=== PATIENT | male | born 1975 | race African-American/Black ===

== ENCOUNTER 2017-06-04 22:54 | Inpatient (IN) | payer MEDICAID ==
[~2017-06-04] VITALS: Ht 182.9 cm; Wt 86.2 kg
[2017-06-05] MEDS ORDERED: SODIUM CHLORIDE 0.9% 1,000 ML IV ONE (01:36)
[2017-06-05] MEDS ORDERED: ONDANSETRON HCL 4MG/2ML VIAL IV STA (01:36)
[2017-06-05 02:07] LABS: CLARITY URINE CLEAR (CLEAR); COLOR URINE YELLOW (YELLOW); KETONES URINE NEGATIVE (NEGATIVE); LEUKOCYTE ESTERASE URINE TRACE (NEGATIVE); NITRITE URINE NEGATIVE (NEGATIVE); OCCULT BLOOD URINE 2+ (NEGATIVE); PH URINE 5.5 (4.5-8.0); PROTEIN URINE 3+ (NEGATIVE); SPECIFIC GRAVITY URINE 1.016 (1.005-1.030); UROBILINOGEN URINE 0.2 E.U./dL (0.2-1.0)
[2017-06-05 02:20] LABS: *AMPHETAMINES SCREEN URINE PRESUMTIVE POSITIVE (NEGATIVE); *BARBITURATES SCREEN URINE NEGATIVE (NEGATIVE); *BENZODIAZEPINES SCREEN URINE NEGATIVE (NEGATIVE); *COCAINE SCREEN URINE NEGATIVE (NEGATIVE); CANNABINOID URINE SCREEN NEGATIVE (NEGATIVE); METHADONE URINE SCREEN NEGATIVE (NEGATIVE); OPIATES URINE SCREEN NEGATIVE (NEGATIVE); PHENCYCLIDINE URINE SCREEN NEGATIVE (NEGATIVE)
[2017-06-05 02:25] LABS: BASOPHILS % 0.5 % (0.0-2.0); EOSINOPHILS % 0.9 % (0.0-5.0); HEMATOCRIT. 31.5 % (42.0-52.0); HEMOGLOBIN. 10.4 g/dL (14.0-18.0); LYMPHOCYTES % 11.4 % (20.0-50.0); MEAN CORPUSCULAR HEMOGLOBIN 26.7 pg (28.0-32.0); MEAN CORPUSCULAR VOLUME 81.2 fL (80.0-94.0); MEAN PLATELET VOLUME 9.1 fl (7.4-10.4); MONOCYTES % 6.8 % (2.0-8.0); NEUTROPHILS % 80.4 % (40.0-76.0); PLATELET 333 x1000/uL (130-400); RED BLOOD CELL COUNT 3.88 mill/uL (4.7-6.1); RED CELL DISTRIBUTION WIDTH 14.6 % (11.6-14.6)
[2017-06-05 02:26] LABS: CHLORIDE 103 mEq/L (98-107)
[2017-06-05 02:30] LABS: INR 1.2; PROTHROMBIN TIME 12.8 sec (9.4-11.6)
[2017-06-05] MEDS ORDERED: AZITHROMYCIN 500 MG in DEXT 5% WATER 250 ML IV NR (02:30)
[2017-06-05] MEDS ORDERED: CEFTRIAXONE 1 G PREMIX 50 ML IV NR (02:30)
[2017-06-05 02:38] LABS: CARBON DIOXIDE 21 mEq/L (21-32); ETHANOL BLOOD < 10 mg/dL
[2017-06-05] MEDS ORDERED: SODIUM CHLORIDE 0.9% 1,000 ML IV SCH (02:46)
[2017-06-05] MEDS ORDERED: CLONIDINE 0.2MG TABLET PO ONE (04:30)
[2017-06-05] MEDS: SODIUM CHLORIDE 0.9% 1,000 ML IV SCH ×3 (05:41→20:55)
[2017-06-05] MEDS ORDERED: ACETAMINOPHEN 325MG TABLET PO PRN (05:45)
[2017-06-05] MEDS ORDERED: ONDANSETRON HCL 4MG/2ML VIAL IV PRN (05:45)
[2017-06-05] MEDS ORDERED: PIPERACILLIN/TAZ 3.375G PREMIX 50 ML IV SCH (05:45)
[2017-06-05] MEDS ORDERED: GUAIFENESIN 200MG/10ML SUGAR FREE UDC PO PRN (05:45)
[2017-06-05] MEDS ORDERED: DOCUSATE SODIUM 100MG CAPSULE PO PRN (05:45)
[2017-06-05] MEDS ORDERED: IPRATROPIUM/ALBUTEROL 0.5-3(2.5)MG/3ML NEB INH PRN (05:45)
[2017-06-05] MEDS ORDERED: CLONIDINE 0.1MG TABLET PO PRN (05:45)
[2017-06-05 05:55] VITALS: BP 150/114
[2017-06-05] MEDS: HYDROCODONE/ACETAMINOPHEN 5/325MG TABLET PO PRN (06:23)
[2017-06-05 06:36] VITALS: BP 150/114
[2017-06-05 08:00] VITALS: BP 144/108
[2017-06-05] MEDS: PIPERACILLIN/TAZ 2.25G PREMIX 50 ML IV SCH ×2 (08:13→16:14)
[2017-06-05] MEDS ORDERED: ASPIRIN 81MG EC TABLET PO SCH (09:00)
[2017-06-05] MEDS ORDERED: AMLODIPINE 10MG TABLET PO SCH (09:00)
[2017-06-05] MEDS ORDERED: VANCOMYCIN 1500MG in DEXTROSE 5% WATER 250ML IV NR (09:00)
[2017-06-05] MEDS ORDERED: INFLUENZA VIRUS VACCINE 0.5ML SYR IM ONE (09:30)
[2017-06-05] MEDS ORDERED: PNEUMOCOCCAL 23-VAL P-SAC VAC 0.5 ML IM ONE (09:30)
[2017-06-05] MEDS ORDERED: LOSARTAN POTASSIUM 50 MG TABLET PO SCH (11:15)
[2017-06-05 12:00] VITALS: BP 134/91
[2017-06-05 13:54] LABS: CREATINE KINASE 684 IU/L (39-308)
[2017-06-05] MEDS: HYDRALAZINE HCL 50MG TABLET PO SCH ×2 (13:57→20:53)
[2017-06-05] MEDS ORDERED: LORAZEPAM 2MG/ML CPJ IV PRN (15:00)
[2017-06-05] MEDS ORDERED: FOLIC ACID 1MG TABLET PO SCH (15:30)
[2017-06-05] MEDS ORDERED: THIAMINE HCL 100MG TABLET PO SCH (15:30)
[2017-06-05] MEDS ORDERED: MULTIVITAMINS,THER W-MINERALS TABLET PO SCH (15:30)
[2017-06-05 16:00] VITALS: BP 119/84
[2017-06-05 20:00] VITALS: BP 133/99
[2017-06-06] VITALS: BP 139/86
[2017-06-06] MEDS: PIPERACILLIN/TAZ 2.25G PREMIX 50 ML IV SCH (00:06)
[2017-06-06] MEDS: HYDROCODONE/ACETAMINOPHEN 5/325MG TABLET PO PRN (00:06)
[2017-06-06 03:48] VITALS: BP 139/86
[2017-06-06 04:00] VITALS: BP 126/95
[2017-06-06 17:10] LABS: ANTI-NUCLEAR ANTIBODIES DIRECT Negative (Negative)
[2017-06-08 13:07] LABS: A/G RATIO 0.8 (0.7-1.7); ALBUMIN 2.4 g/dL (2.9-4.4); ALPHA-1-GLOBULIN 0.3 g/dL (0.0-0.4); ALPHA-2-GLOBULIN 0.8 g/dL (0.4-1.0); BETA GLOBULIN 0.7 g/dL (0.7-1.3); GLOBULIN TOTAL 2.9 g/dL (2.2-3.9); M-SPIKE Not Observed g/dL (Not Observed); TOTAL PROTEIN SERUM 5.3 g/dL (6.0-8.5)
[2017-06-09 05:25] LABS: COMPLEMENT C3 125 mg/dL (82-167)
== END 2017-06-06 04:25 | disposition short-term general hospital (02) | DRG 720 ==
LOC: ER 06-05 00:24 → 5WST 06-05 02:47 → EDBEDREQ 06-05 03:12 → EDBEDREQTM 06-05 03:14 → ENRESERV 06-05 04:08 → SUPCPDRO 06-05 05:40
PROVIDERS: ADMIT Hospitalist; ATTEND Hospitalist
DX: A41.9 Sepsis, unspecified organism (principal); J96.00 Acute respiratory failure, unspecified whether with hypoxia or hypercapnia; E44.0 Moderate protein-calorie malnutrition; N17.9 Acute kidney failure, unspecified; J18.9 Pneumonia, unspecified organism; N18.3 Chronic kidney disease, stage 3 (moderate); I12.9 Hypertensive chronic kidney disease with stage 1 through stage 4 chronic kidney disease, or unspecified chronic kidney disease; F17.200 Nicotine dependence, unspecified, uncomplicated; M54.5 Low back pain; F12.90 Cannabis use, unspecified, uncomplicated; F15.10 Other stimulant abuse, uncomplicated; F17.210 Nicotine dependence, cigarettes, uncomplicated; I16.0 Hypertensive urgency; Z82.3 Family history of stroke; Z68.25 Body mass index [BMI] 25.0-25.9, adult; Z82.49 Family history of ischemic heart disease and other diseases of the circulatory system
CPT/HCPCS: 36415; 71045; 76770; 80053; 80305; 81001; 82550; 82570; 83605; 83690; 84155; 84156; 84165; 85025; 85610; 86038; 86160; 86850; 86900; 87040; 90686; 90732; 93970; 96365; 96367; 99291; G0482; J0456; J0696; J2405; J2543; J3370; J7030; J7060

== ENCOUNTER 2017-07-02 15:07 | Emergency (ER) | payer MEDICAID ==
[~2017-07-02] VITALS: Ht 180.3 cm; Wt 80.0 kg
[2017-07-02 17:17] VITALS: BP 201/142
== END 2017-07-02 17:47 | disposition home or self-care (01) ==
LOC: ER 16:16
DX: Z76.0 Encounter for issue of repeat prescription (principal); I10 Essential (primary) hypertension; F17.200 Nicotine dependence, unspecified, uncomplicated; F12.10 Cannabis abuse, uncomplicated; Z99.2 Dependence on renal dialysis
CPT/HCPCS: 93005; 99283

== ENCOUNTER 2017-07-18 01:12 | Inpatient (IN) | payer MEDICAID ==
[~2017-07-18] VITALS: Ht 180.3 cm; Wt 79.4 kg
[2017-07-18] MEDS ORDERED: ASPIRIN 81MG TABLET PO ONE (02:45)
[2017-07-18] MEDS ORDERED: CALCIUM GLUCONATE 100MG/ML 10ML VIAL IV ONE (03:00)
[2017-07-18 03:39] LABS: BASOPHILS % 1.1 % (0.0-2.0); EOSINOPHILS % 2.6 % (0.0-5.0); HEMATOCRIT. 31.3 % (42.0-52.0); HEMOGLOBIN. 10.2 g/dL (14.0-18.0); INR 1.1; MEAN CORPUSCULAR HEMOGLOBIN 26.4 pg (28.0-32.0); MEAN CORPUSCULAR VOLUME 81.2 fL (80.0-94.0); MEAN PLATELET VOLUME 9.1 fl (7.4-10.4); MONOCYTES % 7.3 % (2.0-8.0); PLATELET 281 x1000/uL (130-400); PROTHROMBIN TIME 11.8 sec (9.4-11.6); RED BLOOD CELL COUNT 3.86 mill/uL (4.7-6.1); RED CELL DISTRIBUTION WIDTH 16.5 % (11.6-14.6)
[2017-07-18 03:41] LABS: CHLORIDE 107 mEq/L (98-107)
[2017-07-18] MEDS ORDERED: FUROSEMIDE 100MG/10ML VIAL IVP ONE (04:45)
[2017-07-18] MEDS ORDERED: AMLODIPINE 10MG TABLET PO ONE (06:30)
[2017-07-18] MEDS ORDERED: CLONIDINE 0.1MG TABLET PO PRN (10:00)
[2017-07-18] MEDS ORDERED: IPRATROPIUM/ALBUTEROL 0.5-3(2.5)MG/3ML NEB INH PRN (10:00)
[2017-07-18] MEDS ORDERED: ACETAMINOPHEN 325MG TABLET PO PRN (10:00)
[2017-07-18] MEDS ORDERED: DOCUSATE SODIUM 100MG CAPSULE PO PRN (10:00)
[2017-07-18] MEDS ORDERED: MAGNESIUM/ALUMINUM HYDROXIDE/SIMETHICONE 30ML UDC PO PRN (10:00)
[2017-07-18] MEDS ORDERED: ENOXAPARIN 40MG/0.4ML SYR SUBCUT SCH (10:00)
[2017-07-18] MEDS ORDERED: LORAZEPAM 0.5MG TABLET PO PRN (10:00)
[2017-07-18] MEDS ORDERED: DIPHENHYDRAMINE 50MG/ML VIAL IV PRN (10:00)
[2017-07-18] MEDS ORDERED: ONDANSETRON HCL 4MG/2ML VIAL IV PRN (10:00)
[2017-07-18] MEDS ORDERED: GUAIFENESIN 200MG/10ML SUGAR FREE UDC PO PRN (10:00)
[2017-07-18] MEDS ORDERED: NITROGLYCERIN 0.4MG TABLET SL SL PRN (10:00)
[2017-07-18] MEDS: HYDRALAZINE HCL 50MG TABLET PO SCH ×2 (14:02→22:33)
[2017-07-18] MEDS ORDERED: ZOLPIDEM TARTRATE 5MG TABLET PO PRN (20:00)
[2017-07-18 20:45] VITALS: BP 140/99
[2017-07-18 21:00] VITALS: BP 140/99
[2017-07-18] MEDS ORDERED: NA PHOS,M-B/NA PHOS,DI-BA ENEMA 118ML PR PRN (21:00)
[2017-07-18] MEDS ORDERED: FAMOTIDINE 20MG/2ML VIAL IV SCH (21:00)
[2017-07-18 22:03] LABS: TROPONIN I 0.05 ng/mL (0.00-0.04)
[2017-07-18] MEDS: METOPROLOL TARTRATE 25MG TABLET PO SCH (22:33)
[2017-07-18] MEDS: FAMOTIDINE 20MG/2ML VIAL IV SCH (22:34)
[2017-07-19 00:04] VITALS: BP 162/117
[2017-07-19] MEDS ORDERED: BENA40TA3 PO (03:05)
[2017-07-19] MEDS ORDERED: AMLO10TA80 PO (03:05)
[2017-07-19 04:30] VITALS: BP 150/108
[2017-07-19] MEDS: HYDRALAZINE HCL 50MG TABLET PO SCH ×3 (05:12→20:32)
[2017-07-19] MEDS: SEVELAMER CARBONATE 800 MG TABLET PO SCH ×3 (07:59→17:25)
[2017-07-19] MEDS: ENOXAPARIN 30MG/0.3ML SYR SUBCUT SCH (07:59)
[2017-07-19 08:00] VITALS: BP 147/107
[2017-07-19] MEDS: ASPIRIN 325MG EC TABLET PO SCH (08:00)
[2017-07-19] MEDS: METOPROLOL TARTRATE 25MG TABLET PO SCH ×2 (08:00→20:32)
[2017-07-19] MEDS: FOLIC ACID/VITAMIN B COMP W-C TABLET PO SCH (08:00)
[2017-07-19 08:02] LABS: CREATINE KINASE MB FRACTION 4.9 ng/mL (0.5-3.6); TROPONIN I 0.04 ng/mL (0.00-0.04)
[2017-07-19] MEDS: AMLODIPINE 10MG TABLET PO SCH (09:00)
[2017-07-19 10:29] LABS: BASOPHILS % 3.1 % (0.0-2.0); EOSINOPHILS % 4.5 % (0.0-5.0); HEMATOCRIT. 32.6 % (42.0-52.0); HEMOGLOBIN. 10.4 g/dL (14.0-18.0); LYMPHOCYTES % 25.4 % (20.0-50.0); MEAN CORPUSCULAR HEMOGLOBIN 26.6 pg (28.0-32.0); MEAN CORPUSCULAR VOLUME 83.7 fL (80.0-94.0); MEAN PLATELET VOLUME 8.8 fl (7.4-10.4); MONOCYTES % 2.6 % (2.0-8.0); NEUTROPHILS % 64.4 % (40.0-76.0); PLATELET 223 x1000/uL (130-400); RED CELL DISTRIBUTION WIDTH 16.7 % (11.6-14.6)
[2017-07-19 11:00] LABS: PHOSPHORUS 3.9 mg/dL (2.5-4.9)
[2017-07-19 12:00] VITALS: BP 123/77
[2017-07-19 16:00] VITALS: BP 133/85
[2017-07-19 20:30] VITALS: BP 139/97
[2017-07-19] MEDS: FAMOTIDINE 20MG/2ML VIAL IV SCH (20:32)
[2017-07-20] VITALS: BP 150/108
[2017-07-20 04:30] VITALS: BP 134/98
[2017-07-20] MEDS: HYDRALAZINE HCL 50MG TABLET PO SCH ×2 (05:01→13:47)
[2017-07-20 07:27] LABS: BASOPHILS % 1.3 % (0.0-2.0); EOSINOPHILS % 5.2 % (0.0-5.0); HEMATOCRIT. 34.5 % (42.0-52.0); HEMOGLOBIN. 11.1 g/dL (14.0-18.0); LYMPHOCYTES % 28.6 % (20.0-50.0); MEAN CORPUSCULAR HEMOGLOBIN 26.4 pg (28.0-32.0); MEAN PLATELET VOLUME 9.2 fl (7.4-10.4); MONOCYTES % 11.7 % (2.0-8.0); NEUTROPHILS % 53.2 % (40.0-76.0); PLATELET 249 x1000/uL (130-400); RED BLOOD CELL COUNT 4.21 mill/uL (4.7-6.1); RED CELL DISTRIBUTION WIDTH 17.2 % (11.6-14.6)
[2017-07-20 08:00] VITALS: BP 130/85
[2017-07-20] MEDS: FOLIC ACID/VITAMIN B COMP W-C TABLET PO SCH (08:28)
[2017-07-20] MEDS: SEVELAMER CARBONATE 800 MG TABLET PO SCH ×2 (08:28→12:47)
[2017-07-20] MEDS: ASPIRIN 325MG EC TABLET PO SCH (08:28)
[2017-07-20] MEDS: ENOXAPARIN 30MG/0.3ML SYR SUBCUT SCH (08:29)
[2017-07-20] MEDS: METOPROLOL TARTRATE 25MG TABLET PO SCH (08:37)
[2017-07-20] MEDS: AMLODIPINE 10MG TABLET PO SCH (08:42)
[2017-07-20 12:00] VITALS: BP 132/93
[2017-07-20 16:00] VITALS: BP 129/87
[2017-07-20 17:18] VITALS: BP 130/85
[2017-07-20] MEDS ORDERED: FAMOTIDINE 20MG TABLET PO SCH (21:00)
== END 2017-07-20 18:16 | disposition home or self-care (01) | DRG 199 ==
LOC: ER 01:22 → 8WST 04:55 → CANRESERV 17:12 → ENRESERV 17:12
PROVIDERS: ADMIT Internal Medicine; ATTEND Internal Medicine
PROC: 5A1D70Z Performance of Urinary Filtration, Intermittent, Less than 6 Hours Per Day (ICD-10-PCS; principal; 2017-07-18)
DX: I16.0 Hypertensive urgency (principal); I50.33 Acute on chronic diastolic (congestive) heart failure; N18.6 End stage renal disease; E44.1 Mild protein-calorie malnutrition; D63.8 Anemia in other chronic diseases classified elsewhere; F12.90 Cannabis use, unspecified, uncomplicated; F17.210 Nicotine dependence, cigarettes, uncomplicated; I13.2 Hypertensive heart and chronic kidney disease with heart failure and with stage 5 chronic kidney disease, or end stage renal disease; Z59.0 Homelessness; Z99.2 Dependence on renal dialysis; Z91.14 Patient's other noncompliance with medication regimen; Z91.19 Patient's noncompliance with other medical treatment and regimen
CPT/HCPCS: 36415; 71045; 80048; 80053; 80061; 82550; 82553; 83036; 83880; 84100; 84484; 85025; 85610; 93005; 93970; 96374; 96375; 99285; J0610; J1650; J1940; J3490; J7030

== ENCOUNTER 2018-01-21 03:13 | Inpatient (IN) | payer MEDICARE, MEDICAID ==
[~2018-01-21] VITALS: Ht 330.2 cm; Wt 83.9 kg
[2018-01-21] VITALS (15 sets, daily range): BP systolic 147–237; BP diastolic 101–160
[~2018-01-21 03:13] MED LIST: AMLO10TA80 PO; BENA40TA9 PO; NIFE30TA94 PO
[2018-01-21 04:09] LABS: BASOPHILS % 1.3 % (0.0-2.0); EOSINOPHILS % 3.5 % (0.0-5.0); HEMATOCRIT. 34.9 % (42.0-52.0); HEMOGLOBIN. 11.2 g/dL (14.0-18.0); LYMPHOCYTES % 26.8 % (20.0-50.0); MEAN CORPUSCULAR HEMOGLOBIN 26.3 pg (28.0-32.0); MEAN CORPUSCULAR VOLUME 82.3 fL (80.0-94.0); MEAN PLATELET VOLUME 8.9 fl (7.4-10.4); MONOCYTES % 10.9 % (2.0-8.0); NEUTROPHILS % 57.5 % (40.0-76.0); PLATELET 233 x1000/uL (130-400); RED BLOOD CELL COUNT 4.24 mill/uL (4.7-6.1); RED CELL DISTRIBUTION WIDTH 18.9 % (11.6-14.6)
[2018-01-21 04:15] LABS: CHLORIDE 112 mEq/L (98-107)
[2018-01-21 04:24] LABS: INR 1.2; PROTHROMBIN TIME 11.7 sec (9.1-11.1)
[2018-01-21] MEDS ORDERED: CALCIUM GLUCONATE 100MG/ML 10ML VIAL IV ONE (05:00)
[2018-01-21 05:16] LABS: PHOSPHORUS 7.4 mg/dL (2.5-4.9)
[2018-01-21] MEDS: NIFEDIPINE XL 90MG TAB PO SCH (07:05)
[2018-01-21] MEDS: BENAZEPRIL 20MG TABLET PO SCH (07:05)
[2018-01-21] MEDS ORDERED: CEFAZOLIN 1000MG PREMIX 50 ML IV ONE ×2 (08:00→08:14)
[2018-01-21] MEDS ORDERED: LIDOCAINE HCL 1% 10 MG/ML 10ML VIAL ONE ×2 (08:04→08:11)
[2018-01-21] MEDS ORDERED: SODIUM BICARBONATE 4% (2.4MEQ) 5ML VIAL IV ONE (08:04)
[2018-01-21] MEDS ORDERED: FENTANYL CITRATE/PF 50MCG/ML 2ML VIAL ONE (08:15)
[2018-01-21] MEDS ORDERED: FENTANYL CITRATE/PF 50MCG/ML 2ML VIAL IV ONE (08:45)
[2018-01-21] MEDS ORDERED: ONDANSETRON HCL 4MG/2ML INJ IV PRN (10:30)
[2018-01-21] MEDS ORDERED: NA PHOS,M-B/NA PHOS,DI-BA ENEMA 118ML PR PRN (10:30)
[2018-01-21] MEDS ORDERED: GUAIFENESIN 200MG/10ML SUGAR FREE UDC PO PRN (10:30)
[2018-01-21] MEDS ORDERED: DOCUSATE SODIUM 100MG CAPSULE PO PRN (10:30)
[2018-01-21] MEDS ORDERED: ACETAMINOPHEN 325MG TABLET PO PRN (10:30)
[2018-01-21] MEDS ORDERED: LORAZEPAM 0.5MG TABLET PO PRN (10:30)
[2018-01-21] MEDS ORDERED: MAGNESIUM/ALUMINUM HYDROXIDE/SIMETHICONE 30ML UDC PO PRN (10:30)
[2018-01-21] MEDS ORDERED: FOLIC ACID/VITAMIN B COMP W-C TABLET PO SCH (10:30)
[2018-01-21] MEDS ORDERED: NITROGLYCERIN 0.4MG TABLET SL SL PRN (10:30)
[2018-01-21] MEDS ORDERED: IPRATROPIUM/ALBUTEROL 0.5-3(2.5)MG/3ML NEB INH PRN (10:30)
[2018-01-21] MEDS ORDERED: DIPHENHYDRAMINE 50MG/ML VIAL IV PRN (10:30)
[2018-01-21] MEDS: CALCIUM ACETATE 667MG CAPSULE PO SCH ×2 (12:09→17:39)
[2018-01-21] MEDS: CLONIDINE 0.1MG TABLET PO PRN ×2 (12:10→19:51)
[2018-01-21] MEDS: ASPIRIN 325MG EC TABLET PO SCH (12:10)
[2018-01-21] MEDS: FAMOTIDINE 20MG TABLET PO SCH (12:10)
[2018-01-21] MEDS: FOLIC ACID/VITAMIN B COMP W-C TABLET PO SCH (12:10)
[2018-01-21] MEDS ORDERED: HEPARIN SODIUM 1,000 UNIT/1ML VIAL IV NR (16:15)
[2018-01-21 17:25] LABS: CREATINE KINASE MB FRACTION 7.5 ng/mL (0.5-3.6)
[2018-01-22] VITALS (8 sets, daily range): BP systolic 142–174; BP diastolic 90–126
[2018-01-22] MEDS: ZOLPIDEM TARTRATE 5MG TABLET PO PRN ×2 (01:12→23:06)
[2018-01-22] MEDS: TRAMADOL 50MG TABLET PO PRN ×2 (01:17→17:07)
[2018-01-22 07:13] LABS: CREATINE KINASE MB FRACTION 4.8 ng/mL (0.5-3.6)
[2018-01-22] MEDS: NIFEDIPINE XL 90MG TAB PO SCH ×2 (09:00→14:56)
[2018-01-22] MEDS: BENAZEPRIL 20MG TABLET PO SCH (09:00)
[2018-01-22] MEDS: ASPIRIN 325MG EC TABLET PO SCH (09:00)
[2018-01-22] MEDS: CALCIUM ACETATE 667MG CAPSULE PO SCH ×3 (09:07→19:42)
[2018-01-22] MEDS: FAMOTIDINE 20MG TABLET PO SCH (09:07)
[2018-01-22] MEDS: FOLIC ACID/VITAMIN B COMP W-C TABLET PO SCH (09:07)
[2018-01-22 09:48] LABS: BASOPHILS % 1.2 % (0.0-2.0); EOSINOPHILS % 3.4 % (0.0-5.0); HEMATOCRIT. 35.8 % (42.0-52.0); HEMOGLOBIN. 11.7 g/dL (14.0-18.0); LYMPHOCYTES % 18.9 % (20.0-50.0); MEAN CORPUSCULAR HEMOGLOBIN 26.3 pg (28.0-32.0); MEAN CORPUSCULAR VOLUME 80.9 fL (80.0-94.0); MEAN PLATELET VOLUME 9.5 fl (7.4-10.4); MONOCYTES % 9.2 % (2.0-8.0); NEUTROPHILS % 67.3 % (40.0-76.0); PLATELET 196 x1000/uL (130-400); RED BLOOD CELL COUNT 4.43 mill/uL (4.7-6.1); RED CELL DISTRIBUTION WIDTH 19.1 % (11.6-14.6)
[2018-01-22] MEDS ORDERED: HEPARIN SODIUM 1,000 UNIT/1ML VIAL IV NR (14:30)
[2018-01-22] MEDS: BENAZEPRIL 10MG TABLET PO SCH (14:56)
[2018-01-22] MEDS: CLONIDINE 0.1MG TABLET PO PRN (19:41)
[2018-01-23 04:00] VITALS: BP 143/104
[2018-01-23] MEDS: HYDROCODONE/APAP 7.5/325MG 1 TAB TABLET PO PRN (05:23)
[2018-01-23 07:00] LABS: BASOPHILS % 1.6 % (0.0-2.0); EOSINOPHILS % 4.2 % (0.0-5.0); HEMATOCRIT. 38.3 % (42.0-52.0); HEMOGLOBIN. 12.3 g/dL (14.0-18.0); LYMPHOCYTES % 20.3 % (20.0-50.0); MEAN CORPUSCULAR HEMOGLOBIN 26.3 pg (28.0-32.0); MEAN CORPUSCULAR VOLUME 81.6 fL (80.0-94.0); MEAN PLATELET VOLUME 8.8 fl (7.4-10.4); MONOCYTES % 10.1 % (2.0-8.0); NEUTROPHILS % 63.8 % (40.0-76.0); PLATELET 182 x1000/uL (130-400); RED CELL DISTRIBUTION WIDTH 18.9 % (11.6-14.6)
[2018-01-23 08:00] VITALS: BP 162/102
[2018-01-23] MEDS: CALCIUM ACETATE 667MG CAPSULE PO SCH ×3 (08:10→20:34)
[2018-01-23] MEDS: ASPIRIN 325MG EC TABLET PO SCH (09:00)
[2018-01-23] MEDS: TRAMADOL 50MG TABLET PO PRN ×2 (09:15→16:13)
[2018-01-23] MEDS: FAMOTIDINE 20MG TABLET PO SCH (09:19)
[2018-01-23] MEDS: FOLIC ACID/VITAMIN B COMP W-C TABLET PO SCH (09:19)
[2018-01-23] MEDS: BENAZEPRIL 10MG TABLET PO SCH (09:19)
[2018-01-23 12:00] VITALS: BP 160/109
[2018-01-23] MEDS: CLONIDINE 0.1MG TABLET PO PRN ×2 (12:07→16:12)
[2018-01-23 16:00] VITALS: BP 162/121
[2018-01-23 20:00] VITALS: BP 136/98
[2018-01-24] VITALS: BP 152/92
[2018-01-24 01:20] VITALS: BP 170/129
[2018-01-24] MEDS: CLONIDINE 0.1MG TABLET PO PRN (01:22)
[2018-01-24] MEDS: HYDROCODONE/APAP 7.5/325MG 1 TAB TABLET PO PRN (01:23)
[2018-01-24 05:22] VITALS: BP 170/128
[2018-01-24] MEDS: NIFEDIPINE XL 90MG TAB PO SCH (05:26)
[2018-01-24 08:00] VITALS: BP 178/31
[2018-01-24] MEDS: FOLIC ACID/VITAMIN B COMP W-C TABLET PO SCH (08:57)
[2018-01-24] MEDS: ASPIRIN 325MG EC TABLET PO SCH (08:57)
[2018-01-24] MEDS: CALCIUM ACETATE 667MG CAPSULE PO SCH ×3 (08:57→17:35)
[2018-01-24] MEDS: FAMOTIDINE 20MG TABLET PO SCH (08:58)
[2018-01-24] MEDS: BENAZEPRIL 10MG TABLET PO SCH (09:00)
[2018-01-24 12:00] VITALS: BP 159/104
[2018-01-24] MEDS: HYDRALAZINE HCL 25MG TABLET PO SCH ×2 (13:35→20:34)
[2018-01-24 16:00] VITALS: BP 147/95
[2018-01-24] MEDS: ZOLPIDEM TARTRATE 5MG TABLET PO PRN (20:34)
[2018-01-25] MEDS: HYDRALAZINE HCL 25MG TABLET PO SCH (05:27)
[2018-01-25 07:49] LABS: BASOPHILS % 1.6 % (0.0-2.0); EOSINOPHILS % 4.1 % (0.0-5.0); HEMATOCRIT. 38.6 % (42.0-52.0); HEMOGLOBIN. 12.7 g/dL (14.0-18.0); LYMPHOCYTES % 21.9 % (20.0-50.0); MEAN CORPUSCULAR HEMOGLOBIN 26.5 pg (28.0-32.0); MEAN CORPUSCULAR VOLUME 80.4 fL (80.0-94.0); MEAN PLATELET VOLUME 9.1 fl (7.4-10.4); MONOCYTES % 9.3 % (2.0-8.0); NEUTROPHILS % 63.1 % (40.0-76.0); PLATELET 222 x1000/uL (130-400); RED CELL DISTRIBUTION WIDTH 19.3 % (11.6-14.6)
[2018-01-25 08:00] VITALS: BP 144/100
[2018-01-25] MEDS: FOLIC ACID/VITAMIN B COMP W-C TABLET PO SCH (08:43)
[2018-01-25] MEDS: ASPIRIN 325MG EC TABLET PO SCH (08:43)
[2018-01-25] MEDS: FAMOTIDINE 20MG TABLET PO SCH (08:43)
[2018-01-25] MEDS: CALCIUM ACETATE 667MG CAPSULE PO SCH (08:44)
[2018-01-25] MEDS: BENAZEPRIL 10MG TABLET PO SCH (08:44)
[2018-01-25 08:52] VITALS: BP 141/100
[2018-01-25] MEDS: TRAMADOL 50MG TABLET PO PRN (08:52)
[2018-01-25] MEDS ORDERED: LIDOCAINE HCL 1% 10 MG/ML 10ML VIAL ONE (09:14)
[2018-01-25] MEDS ORDERED: SODIUM BICARBONATE 4% (2.4MEQ) 5ML VIAL IV ONE (09:14)
== END 2018-01-25 11:23 | disposition left against medical advice (07) | DRG 314 ==
LOC: ER 03:13 → 7WST 05:10 → EDBEDREQTM 05:14 → EDBEDREQ 05:14 → ENRESERV 08:07
PROVIDERS: ADMIT Internal Medicine; ATTEND Internal Medicine
PROC: 0JPT3XZ Removal of Tunneled Vascular Access Device from Trunk Subcutaneous Tissue and Fascia, Percutaneous Approach (ICD-10-PCS; principal; 2018-01-21)
PROC: 0JH63XZ Insertion of Tunneled Vascular Access Device into Chest Subcutaneous Tissue and Fascia, Percutaneous Approach (ICD-10-PCS; 2018-01-21)
PROC: 02PYX3Z Removal of Infusion Device from Great Vessel, External Approach (ICD-10-PCS; 2018-01-21)
PROC: 02HV33Z Insertion of Infusion Device into Superior Vena Cava, Percutaneous Approach (ICD-10-PCS; 2018-01-21)
PROC: B5181ZA Fluoroscopy of Superior Vena Cava using Low Osmolar Contrast, Guidance (ICD-10-PCS; 2018-01-21)
PROC: 5A1D70Z Performance of Urinary Filtration, Intermittent, Less than 6 Hours Per Day (ICD-10-PCS; 2018-01-21)
PROC: 5A1D70Z Performance of Urinary Filtration, Intermittent, Less than 6 Hours Per Day (ICD-10-PCS; 2018-01-24)
DX: T82.41XA Breakdown (mechanical) of vascular dialysis catheter, initial encounter (principal); I50.33 Acute on chronic diastolic (congestive) heart failure; N18.6 End stage renal disease; I13.2 Hypertensive heart and chronic kidney disease with heart failure and with stage 5 chronic kidney disease, or end stage renal disease; E44.0 Moderate protein-calorie malnutrition; Z68.1 Body mass index [BMI] 19.9 or less, adult; Z99.2 Dependence on renal dialysis; D63.8 Anemia in other chronic diseases classified elsewhere; E83.51 Hypocalcemia; Y71.2 Prosthetic and other implants, materials and accessory cardiovascular devices associated with adverse incidents; E87.5 Hyperkalemia; E83.39 Other disorders of phosphorus metabolism; F15.10 Other stimulant abuse, uncomplicated; Z91.14 Patient's other noncompliance with medication regimen; Z79.899 Other long term (current) drug therapy; Z71.51 Drug abuse counseling and surveillance of drug abuser; Y92.89 Other specified places as the place of occurrence of the external cause
CPT/HCPCS: 36415; 36581; 71045; 77001; 80048; 80051; 80053; 80061; 82330; 82550; 82553; 83036; 84100; 84484; 85025; 85610; 93005; 93970; 96365; 96375; 99152; 99153; 99285; C1750; C1769; J0610; J0690; J1642; J1644; J3010; J3490; J7030; J7040; J7050

== ENCOUNTER 2018-02-04 15:11 | Inpatient (IN) | payer MEDICARE, MEDICAID ==
[~2018-02-04] VITALS: Ht 203.2 cm; Wt 87.1 kg
[2018-02-04 17:47] LABS: BASOPHILS % 1.3 % (0.0-2.0); EOSINOPHILS % 1.6 % (0.0-5.0); HEMATOCRIT. 38.1 % (42.0-52.0); HEMOGLOBIN. 11.9 g/dL (14.0-18.0); MEAN CORPUSCULAR HEMOGLOBIN 25.9 pg (28.0-32.0); MEAN CORPUSCULAR VOLUME 82.5 fL (80.0-94.0); MEAN PLATELET VOLUME 9.4 fl (7.4-10.4); MONOCYTES % 7.8 % (2.0-8.0); NEUTROPHILS % 69.3 % (40.0-76.0); PLATELET 242 x1000/uL (130-400); RED BLOOD CELL COUNT 4.61 mill/uL (4.7-6.1); RED CELL DISTRIBUTION WIDTH 19.5 % (11.6-14.6)
[2018-02-04 17:52] LABS: CHLORIDE 102 mEq/L (98-107); INR 1.2; PROTHROMBIN TIME 12.3 sec (9.1-11.1)
[2018-02-04 17:56] LABS: ETHANOL BLOOD < 10 mg/dL
[2018-02-04 18:02] LABS: AMMONIA 24 uMol/L (<32)
[2018-02-04] MEDS ORDERED: HYDRALAZINE 20MG/ML VIAL IV ONE (18:15)
[2018-02-04] MEDS ORDERED: LORAZEPAM 2MG/ML CPJ IV ONE (20:00)
[2018-02-04] MEDS ORDERED: LORAZEPAM 2MG/ML CPJ ONE (20:01)
[2018-02-04] MEDS ORDERED: ONDANSETRON HCL 4MG/2ML INJ IV PRN (20:30)
[2018-02-04] MEDS ORDERED: ACETAMINOPHEN 650MG/20.3ML UDC GT PRN (20:30)
[2018-02-04] MEDS ORDERED: MAGNESIUM/ALUMINUM HYDROXIDE/SIMETHICONE 30ML UDC PO PRN (20:30)
[2018-02-04] MEDS ORDERED: ACETAMINOPHEN 650MG SUPP PR PRN (20:30)
[2018-02-04] MEDS: BENAZEPRIL 20MG TABLET PO SCH (20:30)
[2018-02-04] MEDS ORDERED: ACETAMINOPHEN 325MG TABLET PO PRN (20:30)
[2018-02-04] MEDS: AMLODIPINE 10MG TABLET PO SCH (20:30)
[2018-02-04 21:26] LABS: HEPATITIS B SURFACE ANTIGEN NEGATIVE
[2018-02-04 21:54] LABS: HEPATITIS B CORE AB IGM NEGATIVE
[2018-02-04 21:55] LABS: HEPATITIS A AB IGM NEGATIVE (NEGATIVE)
[2018-02-04] MEDS ORDERED: LABETALOL 5MG/ML SYR 20 MG/4 ML SYRINGE IV ONE (22:45)
[2018-02-05] VITALS (8 sets, daily range): BP systolic 130–165; BP diastolic 76–116
[2018-02-05] MEDS: NIFEDIPINE XL 90MG TAB PO SCH ×2 (00:40→09:00)
[2018-02-05 00:53] LABS: CREATINE KINASE MB FRACTION 7.1 ng/mL (0.5-3.6)
[2018-02-05 08:55] LABS: BASOPHILS % 1.3 % (0.0-2.0); CHLORIDE 102 mEq/L (98-107); EOSINOPHILS % 1.2 % (0.0-5.0); HEMATOCRIT. 42.1 % (42.0-52.0); HEMOGLOBIN. 13.5 g/dL (14.0-18.0); LYMPHOCYTES % 11.6 % (20.0-50.0); MEAN CORPUSCULAR HEMOGLOBIN 26.3 pg (28.0-32.0); MEAN CORPUSCULAR VOLUME 82.2 fL (80.0-94.0); NEUTROPHILS % 80.9 % (40.0-76.0); PLATELET 284 x1000/uL (130-400); RED BLOOD CELL COUNT 5.13 mill/uL (4.7-6.1); RED CELL DISTRIBUTION WIDTH 19.6 % (11.6-14.6)
[2018-02-05] MEDS: AMLODIPINE 10MG TABLET PO SCH (09:00)
[2018-02-05] MEDS: BENAZEPRIL 20MG TABLET PO SCH (09:00)
[2018-02-05 09:05] LABS: LDL CHOLESTEROL 76 mg/dL (5-100)
[2018-02-05 09:06] LABS: CREATINE KINASE MB FRACTION 8.2 ng/mL (0.5-3.6); HDL CHOLESTEROL 61 mg/dL (40-59)
[2018-02-05 09:07] LABS: T4 FREE 1.25 ng/dL (0.76-1.46)
[2018-02-05 09:18] LABS: CREATINE KINASE 1109 IU/L (39-308)
[2018-02-05] MEDS: MULTIVITAMINS,THER W-MINERALS TABLET PO SCH (15:10)
[2018-02-05] MEDS: FOLIC ACID 1MG TABLET PO SCH (15:10)
[2018-02-05] MEDS: THIAMINE HCL 100MG TABLET PO SCH (15:10)
[2018-02-05] MEDS: HYDROCODONE/ACETAMINOPHEN 5/325MG TABLET PO PRN ×2 (15:24→20:12)
[2018-02-05 17:46] LABS: AMMONIA 34 uMol/L (<32)
[2018-02-05 17:51] LABS: T4 FREE 1.18 ng/dL (0.76-1.46)
[2018-02-05 18:01] LABS: FOLIC ACID (FOLATE) SERUM >20 ng/mL ng/mL (>5.38)
[2018-02-05 18:13] LABS: VITAMIN B12 SERUM > 2000.0 pg/mL (211-911)
[2018-02-06] VITALS: BP 167/112
[2018-02-06] MEDS: HYDROCODONE/ACETAMINOPHEN 5/325MG TABLET PO PRN ×2 (00:20→04:24)
[2018-02-06 02:00] VITALS: BP 158/113
[2018-02-06] MEDS ORDERED: CLONIDINE 0.1MG TABLET PO PRN (02:00)
[2018-02-06 04:00] VITALS: BP 159/117
[2018-02-06 06:00] VITALS: BP 165/114
[2018-02-06 08:00] VITALS: BP 170/120
[2018-02-06 08:40] LABS: EOSINOPHILS % 4.7 % (0.0-5.0); HEMATOCRIT. 38.4 % (42.0-52.0); HEMOGLOBIN. 12.4 g/dL (14.0-18.0); LYMPHOCYTES % 17.9 % (20.0-50.0); MEAN CORPUSCULAR HEMOGLOBIN 26.4 pg (28.0-32.0); MEAN CORPUSCULAR VOLUME 81.8 fL (80.0-94.0); MEAN PLATELET VOLUME 9.2 fl (7.4-10.4); MONOCYTES % 9.8 % (2.0-8.0); NEUTROPHILS % 66.6 % (40.0-76.0); PLATELET 232 x1000/uL (130-400); RED CELL DISTRIBUTION WIDTH 19.1 % (11.6-14.6)
[2018-02-06] MEDS: NIFEDIPINE XL 90MG TAB PO SCH (09:00)
[2018-02-06] MEDS: MULTIVITAMINS,THER W-MINERALS TABLET PO SCH (09:00)
[2018-02-06] MEDS: FOLIC ACID 1MG TABLET PO SCH (09:00)
[2018-02-06] MEDS: AMLODIPINE 10MG TABLET PO SCH (09:00)
[2018-02-06] MEDS: THIAMINE HCL 100MG TABLET PO SCH (09:00)
[2018-02-06] MEDS ORDERED: BENAZEPRIL 10MG TABLET PO SCH (09:30)
[2018-02-06 10:17] VITALS: BP 162/110
== END 2018-02-06 11:09 | disposition home or self-care (01) | DRG 91 ==
LOC: ER 15:11 → 5EST 22:34 → EDBEDREQSVC 22:35 → EDBEDREQTM 22:35 → EDBEDREQ 22:35 → ENRESERV 02-05 07:17
PROVIDERS: ADMIT Internal Medicine; ATTEND Internal Medicine
PROC: 5A1D70Z Performance of Urinary Filtration, Intermittent, Less than 6 Hours Per Day (ICD-10-PCS; principal; 2018-02-04)
PROC: 5A1D70Z Performance of Urinary Filtration, Intermittent, Less than 6 Hours Per Day (ICD-10-PCS; 2018-02-05)
DX: G92 Toxic encephalopathy (principal); N18.6 End stage renal disease; I13.11 Hypertensive heart and chronic kidney disease without heart failure, with stage 5 chronic kidney disease, or end stage renal disease; R18.8 Other ascites; Z99.2 Dependence on renal dialysis; E11.22 Type 2 diabetes mellitus with diabetic chronic kidney disease; F20.9 Schizophrenia, unspecified; E78.5 Hyperlipidemia, unspecified; F19.10 Other psychoactive substance abuse, uncomplicated; F41.9 Anxiety disorder, unspecified; F17.210 Nicotine dependence, cigarettes, uncomplicated; F31.9 Bipolar disorder, unspecified; N28.1 Cyst of kidney, acquired; Z91.15 Patient's noncompliance with renal dialysis
CPT/HCPCS: 36415; 70450; 71045; 76700; 80048; 80053; 80061; 80307; 82140; 82550; 82553; 82607; 82746; 83036; 83605; 83690; 84439; 84443; 84481; 84484; 85025; 85610; 86705; 86709; 86803; 87340; 93005; 93970; 96374; 96375; 97162; 97165; 99285; G0482; J0360; J2060; J7030

== ENCOUNTER 2018-04-16 07:59 | Inpatient (IN) | payer MEDICARE, MEDICAID ==
[~2018-04-16] VITALS: Ht 182.9 cm; Wt 82.6 kg
[2018-04-16 09:18] LABS: HEMATOCRIT. 35.5 % (42.0-52.0); HEMOGLOBIN. 11.1 g/dL (14.0-18.0); MEAN CORPUSCULAR VOLUME 80.2 fL (80.0-94.0); MEAN PLATELET VOLUME 8.8 fl (7.4-10.4); PLATELET 273 x1000/uL (130-400); RED BLOOD CELL COUNT 4.43 mill/uL (4.7-6.1); RED CELL DISTRIBUTION WIDTH 20.1 % (11.6-14.6)
[2018-04-16 09:38] LABS: PLATELET ESTIMATE NORMAL
[2018-04-16] MEDS ORDERED: ONDANSETRON HCL 4MG/2ML INJ IV STA (09:40)
[2018-04-16] MEDS ORDERED: MORPHINE SULFATE 4 MG/ML CPJ (NOT FOR IM USE) IV STA (09:40)
[2018-04-16] MEDS ORDERED: MORPHINE SULFATE 2 MG/ML CPJ (NOT FOR IM USE) IV STA (09:49)
[2018-04-16] MEDS ORDERED: ALTEPLASE 2MG/VIAL ITC NR (11:30)
[2018-04-16 12:42] LABS: CHLORIDE 109 mEq/L (98-107)
[2018-04-16] MEDS ORDERED: MAGNESIUM/ALUMINUM HYDROXIDE/SIMETHICONE 30ML UDC PO PRN (13:45)
[2018-04-16] MEDS ORDERED: LORAZEPAM 2MG/ML CPJ IV PRN (13:45)
[2018-04-16] MEDS ORDERED: GUAIFENESIN 200MG/10ML SUGAR FREE UDC PO PRN (13:45)
[2018-04-16] MEDS ORDERED: ONDANSETRON HCL 4MG/2ML INJ IV PRN (13:45)
[2018-04-16] MEDS ORDERED: DIPHENHYDRAMINE 50MG/ML VIAL IV PRN (13:45)
[2018-04-16] MEDS ORDERED: SODIUM BICARBONATE 8.4% 1 MEQ/ML 50ML SYR IV NR (14:56)
[2018-04-16 15:00] VITALS: BP 196/151
[2018-04-16] MEDS ORDERED: SODIUM POLYSTYRENE SULFONATE 15 G/60 ML BOT PO NR (15:20)
[2018-04-16] MEDS ORDERED: DEXTROSE 50% WATER 50ML SYRINGE IV STA (15:41)
[2018-04-16 15:46] VITALS: BP 196/157
[2018-04-16 16:00] VITALS: BP 201/154
[2018-04-16] MEDS: CLONIDINE 0.1MG TABLET PO PRN (16:13)
[2018-04-16] MEDS: ACETAMINOPHEN 325MG TABLET PO PRN (16:29)
[2018-04-16] MEDS ORDERED: CALCIUM GLUCONATE 1,000 MG in DEXT 5% WATER 90 ML IV NR (16:30)
[2018-04-16] MEDS ORDERED: INSULIN REGULAR (HUMULIN R) UD 100 UNITS/ML SYR IV NR (17:00)
[2018-04-16 20:00] VITALS: BP 192/146
[2018-04-16] MEDS ORDERED: HEPARIN SODIUM 1,000 UNIT/1ML VIAL IV NR (20:45)
[2018-04-17] VITALS: BP 209/156
[2018-04-17] MEDS: ACETAMINOPHEN 325MG TABLET PO PRN ×5 (00:10→20:38)
[2018-04-17] MEDS: CLONIDINE 0.1MG TABLET PO PRN (00:56)
[2018-04-17 04:00] VITALS: BP 179/129
[2018-04-17 08:00] VITALS: BP 176/130
[2018-04-17 08:19] LABS: HEMATOCRIT. 34.7 % (42.0-52.0); HEMOGLOBIN. 11.3 g/dL (14.0-18.0); MEAN CORPUSCULAR HEMOGLOBIN 25.4 pg (28.0-32.0); MEAN CORPUSCULAR VOLUME 78.1 fL (80.0-94.0); MEAN PLATELET VOLUME 8.5 fl (7.4-10.4); PLATELET 205 x1000/uL (130-400); RED BLOOD CELL COUNT 4.44 mill/uL (4.7-6.1); RED CELL DISTRIBUTION WIDTH 19.9 % (11.6-14.6)
[2018-04-17] MEDS: BENAZEPRIL 10MG TABLET PO SCH (08:28)
[2018-04-17] MEDS ORDERED: CARV12.545 PO (08:49)
[2018-04-17] MEDS ORDERED: FOLI-43 PO (08:49)
[2018-04-17] MEDS ORDERED: NIFEDIPINE XL 90MG TAB PO SCH (09:00)
[2018-04-17] MEDS ORDERED: AMLODIPINE 10MG TABLET PO SCH (09:00)
[2018-04-17] MEDS ORDERED: CARVEDILOL 12.5MG TABLET PO SCH (09:30)
[2018-04-17 12:00] VITALS: BP 166/117
[2018-04-17 12:04] LABS: PLATELET ESTIMATE NORMAL
[2018-04-17] MEDS: CLONIDINE 0.2MG TABLET PO SCH (15:21)
[2018-04-17 16:00] VITALS: BP 119/75
[2018-04-17] MEDS ORDERED: VANCOMYCIN 1250MG in DEXTROSE 5% WATER 250ML IV NR (17:30)
[2018-04-17 20:00] VITALS: BP 135/91
[2018-04-17] MEDS ORDERED: HYDROCODONE/ACETAMINOPHEN 5/325MG TABLET PO ONE (20:30)
[2018-04-18] VITALS (7 sets, daily range): BP systolic 110–139; BP diastolic 65–101
[2018-04-18] MEDS: CLONIDINE 0.2MG TABLET PO SCH ×3 (00:30→22:00)
[2018-04-18] MEDS: CARVEDILOL 25MG TABLET PO SCH ×3 (00:31→21:05)
[2018-04-18] MEDS: ACETAMINOPHEN 325MG TABLET PO PRN ×2 (07:01→21:05)
[2018-04-18] MEDS: HYDROCODONE/ACETAMINOPHEN 5/325MG TABLET PO PRN (08:20)
[2018-04-18] MEDS: ONDANSETRON HCL 4MG/2ML INJ IV PRN ×2 (08:34→21:43)
[2018-04-18 08:52] LABS: HEMATOCRIT. 30.3 % (42.0-52.0); HEMOGLOBIN. 9.7 g/dL (14.0-18.0); MEAN CORPUSCULAR HEMOGLOBIN 25.2 pg (28.0-32.0); MEAN CORPUSCULAR VOLUME 78.6 fL (80.0-94.0); MEAN PLATELET VOLUME 8.7 fl (7.4-10.4); PLATELET 155 x1000/uL (130-400); RED BLOOD CELL COUNT 3.86 mill/uL (4.7-6.1); RED CELL DISTRIBUTION WIDTH 19.1 % (11.6-14.6)
[2018-04-18 11:18] LABS: PLATELET ESTIMATE NORMAL
[2018-04-18] MEDS ORDERED: GELATIN SPONGE,ABSORBABLE 12-7MM SPONGE ONE (11:34)
[2018-04-18] MEDS: BENAZEPRIL 10MG TABLET PO SCH (15:51)
[2018-04-18] MEDS: PIPERACILLIN/TAZ 2.25G PREMIX 50 ML IV SCH ×2 (15:51→21:04)
[2018-04-18] MEDS: NIFEDIPINE XL 90MG TAB PO SCH (17:13)
[2018-04-18] MEDS ORDERED: VANCOMYCIN 1 G PREMIX 200 ML IV NR (18:00)
[2018-04-19] VITALS (10 sets, daily range): BP systolic 61–97; BP diastolic 29–63
[2018-04-19] MEDS: CLONIDINE 0.2MG TABLET PO SCH ×3 (06:00→22:00)
[2018-04-19] MEDS: PIPERACILLIN/TAZ 2.25G PREMIX 50 ML IV SCH ×2 (08:00→20:21)
[2018-04-19 08:40] LABS: BASOPHILS % 0.4 % (0.0-2.0); EOSINOPHILS % 0.3 % (0.0-5.0); HEMATOCRIT. 33.3 % (42.0-52.0); HEMOGLOBIN. 10.5 g/dL (14.0-18.0); LYMPHOCYTES % 7.3 % (20.0-50.0); MEAN CORPUSCULAR HEMOGLOBIN 24.9 pg (28.0-32.0); MEAN CORPUSCULAR VOLUME 78.9 fL (80.0-94.0); MEAN PLATELET VOLUME 9.5 fl (7.4-10.4); PLATELET 163 x1000/uL (130-400); RED BLOOD CELL COUNT 4.22 mill/uL (4.7-6.1); RED CELL DISTRIBUTION WIDTH 19.8 % (11.6-14.6)
[2018-04-19] MEDS: NIFEDIPINE XL 90MG TAB PO SCH (09:00)
[2018-04-19] MEDS: BENAZEPRIL 10MG TABLET PO SCH (09:00)
[2018-04-19] MEDS: CARVEDILOL 25MG TABLET PO SCH ×2 (09:00→20:53)
[2018-04-19] MEDS ORDERED: SODIUM POLYSTYRENE SULFONATE 15 G/60 ML BOT PO NR (11:00)
[2018-04-19] MEDS ORDERED: MIDODRINE HCL 5MG TABLET PO SCH (13:00)
[2018-04-19] MEDS: SODIUM CHLORIDE 0.9% 250 ML IV NR ×2 (13:00→15:09)
[2018-04-19] MEDS ORDERED: ALBUMIN HUMAN 25GM/500ML (5%) IV PRN (14:00)
[2018-04-19] MEDS: MIDODRINE HCL 5MG TABLET PO SCH (20:20)
[2018-04-20 00:50] VITALS: BP 117/84
[2018-04-20 04:00] VITALS: BP 117/83
[2018-04-20] MEDS: MIDODRINE HCL 5MG TABLET PO SCH ×3 (04:04→19:30)
[2018-04-20 08:00] VITALS: BP 112/80
[2018-04-20 08:23] LABS: BASOPHILS % 0.9 % (0.0-2.0); EOSINOPHILS % 2.5 % (0.0-5.0); HEMATOCRIT. 32.8 % (42.0-52.0); HEMOGLOBIN. 10.5 g/dL (14.0-18.0); LYMPHOCYTES % 7.4 % (20.0-50.0); MEAN CORPUSCULAR HEMOGLOBIN 25.2 pg (28.0-32.0); MEAN CORPUSCULAR VOLUME 78.5 fL (80.0-94.0); MEAN PLATELET VOLUME 9.6 fl (7.4-10.4); MONOCYTES % 12.3 % (2.0-8.0); NEUTROPHILS % 76.9 % (40.0-76.0); PLATELET 200 x1000/uL (130-400); RED BLOOD CELL COUNT 4.18 mill/uL (4.7-6.1); RED CELL DISTRIBUTION WIDTH 19.9 % (11.6-14.6)
[2018-04-20] MEDS: BENAZEPRIL 10MG TABLET PO SCH (09:00)
[2018-04-20] MEDS: CARVEDILOL 25MG TABLET PO SCH ×2 (09:00→20:14)
[2018-04-20] MEDS: NIFEDIPINE XL 90MG TAB PO SCH (09:00)
[2018-04-20] MEDS: FLUDROCORTISONE ACETATE 0.1MG TABLET PO SCH (09:03)
[2018-04-20] MEDS: ACETAMINOPHEN 325MG TABLET PO PRN (09:03)
[2018-04-20] MEDS: PIPERACILLIN/TAZ 2.25G PREMIX 50 ML IV SCH (09:04)
[2018-04-20] MEDS: DEXT 5%/0.9% NACL 1,000 ML IV SCH (09:05)
[2018-04-20 12:00] VITALS: BP 126/92
[2018-04-20] MEDS: CLONIDINE 0.2MG TABLET PO SCH (14:00)
[2018-04-20 20:00] VITALS: BP 138/82
[2018-04-20] MEDS: CEFAZOLIN 2,000 MG in DEXT 5% WATER 100 ML IV SCH (20:03)
[2018-04-20] MEDS: CHLORPROMAZINE HCL 10 MG TABLET PO PRN (20:43)
[2018-04-20] MEDS: ONDANSETRON HCL 4MG/2ML INJ IV PRN (21:24)
[2018-04-21 00:32] VITALS: BP 137/102
[2018-04-21] MEDS: MIDODRINE HCL 5MG TABLET PO SCH ×3 (03:30→19:30)
[2018-04-21 04:00] VITALS: BP 134/90
[2018-04-21] MEDS: ACETAMINOPHEN 325MG TABLET PO PRN (04:41)
[2018-04-21] MEDS: DEXT 5%/0.9% NACL 1,000 ML IV SCH ×2 (04:49→15:21)
[2018-04-21] MEDS: CLONIDINE 0.2MG TABLET PO SCH ×4 (06:00→22:00)
[2018-04-21 07:46] LABS: HEMATOCRIT. 31.1 % (42.0-52.0); HEMOGLOBIN. 10.2 g/dL (14.0-18.0); MEAN CORPUSCULAR HEMOGLOBIN 25.4 pg (28.0-32.0); MEAN CORPUSCULAR VOLUME 77.5 fL (80.0-94.0); MEAN PLATELET VOLUME 9.2 fl (7.4-10.4); PLATELET 198 x1000/uL (130-400); RED BLOOD CELL COUNT 4.01 mill/uL (4.7-6.1); RED CELL DISTRIBUTION WIDTH 19.6 % (11.6-14.6)
[2018-04-21 08:00] VITALS: BP 147/102
[2018-04-21] MEDS: FLUDROCORTISONE ACETATE 0.1MG TABLET PO SCH (09:13)
[2018-04-21] MEDS: NIFEDIPINE XL 90MG TAB PO SCH (09:13)
[2018-04-21] MEDS: BENAZEPRIL 10MG TABLET PO SCH (09:13)
[2018-04-21] MEDS: CARVEDILOL 25MG TABLET PO SCH ×2 (09:14→20:34)
[2018-04-21 10:07] LABS: COLOR URINE YELLOW (YELLOW); KETONES URINE NEGATIVE (NEGATIVE); LEUKOCYTE ESTERASE URINE NEGATIVE (NEGATIVE); NITRITE URINE NEGATIVE (NEGATIVE); OCCULT BLOOD URINE TRACE (NEGATIVE); PH URINE 5.5 (4.5-8.0); PROTEIN URINE 2+ (NEGATIVE); SPECIFIC GRAVITY URINE 1.014 (1.005-1.030)
[2018-04-21 10:08] LABS: CLARITY URINE CLEAR (CLEAR)
[2018-04-21 10:28] LABS: NUCLEATED RED BLOOD CELLS 1 /100 WBC
[2018-04-21 10:29] LABS: PLATELET ESTIMATE NORMAL
[2018-04-21 12:00] VITALS: BP 141/103
[2018-04-21 16:00] VITALS: BP 102/65
[2018-04-21] MEDS: CEFAZOLIN 2,000 MG in DEXT 5% WATER 100 ML IV SCH (18:51)
[2018-04-21 20:00] VITALS: BP 110/68
[2018-04-22] VITALS: BP 124/72
[2018-04-22] MEDS: MIDODRINE HCL 5MG TABLET PO SCH ×3 (03:30→19:30)
[2018-04-22 04:00] VITALS: BP 105/74
[2018-04-22] MEDS: CHLORPROMAZINE HCL 10 MG TABLET PO PRN (05:59)
[2018-04-22] MEDS: CLONIDINE 0.2MG TABLET PO SCH ×3 (06:00→22:15)
[2018-04-22 08:00] VITALS: BP 119/83
[2018-04-22] MEDS: FLUDROCORTISONE ACETATE 0.1MG TABLET PO SCH (08:59)
[2018-04-22] MEDS: NIFEDIPINE XL 90MG TAB PO SCH (08:59)
[2018-04-22] MEDS: BENAZEPRIL 10MG TABLET PO SCH (08:59)
[2018-04-22] MEDS: CARVEDILOL 25MG TABLET PO SCH ×2 (09:00→22:15)
[2018-04-22 10:10] LABS: HEMATOCRIT. 30.5 % (42.0-52.0); HEMOGLOBIN. 9.8 g/dL (14.0-18.0); MEAN CORPUSCULAR HEMOGLOBIN 24.7 pg (28.0-32.0); MEAN CORPUSCULAR VOLUME 77.2 fL (80.0-94.0); MEAN PLATELET VOLUME 9.2 fl (7.4-10.4); PLATELET 235 x1000/uL (130-400); RED BLOOD CELL COUNT 3.95 mill/uL (4.7-6.1); RED CELL DISTRIBUTION WIDTH 19.6 % (11.6-14.6)
[2018-04-22 10:36] LABS: CHLORIDE 105 mEq/L (98-107)
[2018-04-22 11:02] LABS: PLATELET ESTIMATE NORMAL
[2018-04-22 11:37] LABS: HEMATOCRIT. 30.4 % (42.0-52.0); HEMOGLOBIN. 9.9 g/dL (14.0-18.0); MEAN CORPUSCULAR VOLUME 76.9 fL (80.0-94.0); MEAN PLATELET VOLUME 7.7 fl (7.4-10.4); PLATELET 223 x1000/uL (130-400); RED BLOOD CELL COUNT 3.95 mill/uL (4.7-6.1); RED CELL DISTRIBUTION WIDTH 19.6 % (11.6-14.6)
[2018-04-22 11:45] LABS: INR 1.2; PARTIAL THROMBOPLASTIN TIME 29.2 sec (23.4-31.0); PROTHROMBIN TIME 11.6 sec (9.1-11.1)
[2018-04-22 12:00] VITALS: BP 132/89
[2018-04-22 12:35] LABS: NUCLEATED RED BLOOD CELLS 1 /100 WBC
[2018-04-22 12:36] LABS: PLATELET ESTIMATE NORMAL
[2018-04-22] MEDS ORDERED: LIDOCAINE HCL 1% 20ML VIAL (Pyxis) INJ ONE (13:35)
[2018-04-22] MEDS: HYDROCODONE/ACETAMINOPHEN 5/325MG TABLET PO PRN ×2 (15:04→22:26)
[2018-04-22] MEDS ORDERED: HEPARIN SODIUM 1,000 UNIT/1ML VIAL IV NR (15:30)
[2018-04-22 16:00] VITALS: BP 165/109
[2018-04-22] MEDS: CEFAZOLIN 2,000 MG in DEXT 5% WATER 100 ML IV SCH (18:41)
[2018-04-22 22:13] VITALS: BP 177/134
[2018-04-22] MEDS: DEXT 5%/0.9% NACL 1,000 ML IV SCH (22:27)
[2018-04-23] VITALS (7 sets, daily range): BP systolic 100–195; BP diastolic 60–122
[2018-04-23] MEDS: MIDODRINE HCL 5MG TABLET PO SCH ×3 (03:30→22:39)
[2018-04-23] MEDS: CLONIDINE 0.2MG TABLET PO SCH ×3 (05:26→22:00)
[2018-04-23] MEDS: HYDROCODONE/ACETAMINOPHEN 5/325MG TABLET PO PRN (05:27)
[2018-04-23 06:00] LABS: HEMATOCRIT. 30.4 % (42.0-52.0); HEMOGLOBIN. 9.8 g/dL (14.0-18.0); MEAN CORPUSCULAR HEMOGLOBIN 25.2 pg (28.0-32.0); MEAN CORPUSCULAR VOLUME 77.7 fL (80.0-94.0); MEAN PLATELET VOLUME 8.6 fl (7.4-10.4); PLATELET 258 x1000/uL (130-400); RED BLOOD CELL COUNT 3.91 mill/uL (4.7-6.1); RED CELL DISTRIBUTION WIDTH 19.8 % (11.6-14.6)
[2018-04-23 08:08] LABS: PLATELET ESTIMATE NORMAL
[2018-04-23] MEDS: BENAZEPRIL 10MG TABLET PO SCH (09:10)
[2018-04-23] MEDS: NIFEDIPINE XL 90MG TAB PO SCH (09:10)
[2018-04-23] MEDS: CARVEDILOL 25MG TABLET PO SCH ×2 (09:11→22:38)
[2018-04-23] MEDS: FLUDROCORTISONE ACETATE 0.1MG TABLET PO SCH (09:11)
[2018-04-23] MEDS: CEFAZOLIN 2,000 MG in DEXT 5% WATER 100 ML IV SCH (18:03)
[2018-04-23] MEDS: DEXT 5%/0.9% NACL 1,000 ML IV SCH (22:40)
[2018-04-23] MEDS: ACETAMINOPHEN 325MG TABLET PO PRN (22:50)
[2018-04-24] VITALS: BP 116/71
[2018-04-24 04:00] VITALS: BP 115/71
[2018-04-24] MEDS: CLONIDINE 0.2MG TABLET PO SCH ×2 (06:00→13:39)
[2018-04-24] MEDS: MIDODRINE HCL 5MG TABLET PO SCH ×2 (07:34→11:26)
[2018-04-24 07:53] VITALS: BP 121/81
[2018-04-24 08:00] LABS: BASOPHILS % 1.3 % (0.0-2.0); EOSINOPHILS % 4.7 % (0.0-5.0); HEMATOCRIT. 29.6 % (42.0-52.0); HEMOGLOBIN. 9.4 g/dL (14.0-18.0); LYMPHOCYTES % 17.3 % (20.0-50.0); MEAN CORPUSCULAR HEMOGLOBIN 24.7 pg (28.0-32.0); MEAN CORPUSCULAR VOLUME 77.8 fL (80.0-94.0); MEAN PLATELET VOLUME 8.2 fl (7.4-10.4); MONOCYTES % 12.2 % (2.0-8.0); NEUTROPHILS % 64.5 % (40.0-76.0); PLATELET 259 x1000/uL (130-400); RED CELL DISTRIBUTION WIDTH 19.7 % (11.6-14.6)
[2018-04-24] MEDS: CARVEDILOL 25MG TABLET PO SCH ×2 (08:30→11:47)
[2018-04-24] MEDS: NIFEDIPINE XL 90MG TAB PO SCH ×2 (08:30→11:47)
[2018-04-24] MEDS: BENAZEPRIL 10MG TABLET PO SCH ×2 (08:31→11:47)
[2018-04-24 11:46] VITALS: BP 161/94
[2018-04-24] MEDS: FLUDROCORTISONE ACETATE 0.1MG TABLET PO SCH (11:47)
[2018-04-24] MEDS ORDERED: VANCOMYCIN 1 G PREMIX 200 ML IV SCH (12:00)
[2018-04-24 14:10] VITALS: BP 155/95
== END 2018-04-24 15:05 | disposition home health service (06) | DRG 314 ==
LOC: ER 08:07 → 7WST 11:57 → ENRESERV 13:06
PROVIDERS: ADMIT Internal Medicine Geriatric Medicine; ATTEND Internal Medicine Geriatric Medicine
PROC: 5A1D70Z Performance of Urinary Filtration, Intermittent, Less than 6 Hours Per Day (ICD-10-PCS; 2018-04-16)
PROC: 0JPT0XZ Removal of Tunneled Vascular Access Device from Trunk Subcutaneous Tissue and Fascia, Open Approach (ICD-10-PCS; 2018-04-18)
PROC: 02PYX3Z Removal of Infusion Device from Great Vessel, External Approach (ICD-10-PCS; 2018-04-18)
PROC: 5A1D70Z Performance of Urinary Filtration, Intermittent, Less than 6 Hours Per Day (ICD-10-PCS; 2018-04-18)
PROC: 02HV33Z Insertion of Infusion Device into Superior Vena Cava, Percutaneous Approach (ICD-10-PCS; principal; 2018-04-22)
PROC: B518ZZA Fluoroscopy of Superior Vena Cava, Guidance (ICD-10-PCS; 2018-04-22)
PROC: B548ZZA Ultrasonography of Superior Vena Cava, Guidance (ICD-10-PCS; 2018-04-22)
PROC: 5A1D70Z Performance of Urinary Filtration, Intermittent, Less than 6 Hours Per Day (ICD-10-PCS; 2018-04-22)
PROC: 5A1D70Z Performance of Urinary Filtration, Intermittent, Less than 6 Hours Per Day (ICD-10-PCS; 2018-04-24)
DX: T80.211A Bloodstream infection due to central venous catheter, initial encounter (principal); A41.01 Sepsis due to Methicillin susceptible Staphylococcus aureus; N18.6 End stage renal disease; T82.898A Other specified complication of vascular prosthetic devices, implants and grafts, initial encounter; I13.2 Hypertensive heart and chronic kidney disease with heart failure and with stage 5 chronic kidney disease, or end stage renal disease; I42.9 Cardiomyopathy, unspecified; I50.9 Heart failure, unspecified; F31.9 Bipolar disorder, unspecified; F41.9 Anxiety disorder, unspecified; M54.9 Dorsalgia, unspecified; R63.0 Anorexia; F19.10 Other psychoactive substance abuse, uncomplicated; R06.6 Hiccough; G89.29 Other chronic pain; D63.1 Anemia in chronic kidney disease; Y83.8 Other surgical procedures as the cause of abnormal reaction of the patient, or of later complication, without mention of misadventure at the time of the procedure; E87.5 Hyperkalemia; S29.011A Strain of muscle and tendon of front wall of thorax, initial encounter; X58.XXXA Exposure to other specified factors, initial encounter; Y93.89 Activity, other specified; Y99.8 Other external cause status; Z87.891 Personal history of nicotine dependence; Z99.2 Dependence on renal dialysis; Z79.899 Other long term (current) drug therapy; Z91.14 Patient's other noncompliance with medication regimen; Z82.49 Family history of ischemic heart disease and other diseases of the circulatory system; Y92.89 Other specified places as the place of occurrence of the external cause; Z68.24 Body mass index [BMI] 24.0-24.9, adult
CPT/HCPCS: 36415; 36556; 36589; 71045; 74018; 75827; 76937; 77001; 80048; 80202; 82533; 82962; 83880; 84132; 84484; 87070; 87077; 93005; 93306; 93970; 96374; 96375; 97116; 97162; 99291; C1752; C1769; C1887; J0610; J0690; J1200; J1642; J1644; J1815; J2270; J2405; J2543; J2997; J3370; J3490; J7042; J7050; J7060; Q0161

== ENCOUNTER 2018-05-13 17:26 | Emergency (ER) | payer MEDICARE, MEDICAID ==
[~2018-05-13] VITALS: Ht 167.6 cm; Wt 88.6 kg
[~2018-05-13 17:26] MED LIST changes: +CARV12.545 PO; +FOLI-43 PO
[2018-05-14 00:14] LABS: BASOPHILS % 1.7 % (0.0-2.0); EOSINOPHILS % 4.1 % (0.0-5.0); HEMATOCRIT. 33.4 % (42.0-52.0); HEMOGLOBIN. 10.4 g/dL (14.0-18.0); LYMPHOCYTES % 17.4 % (20.0-50.0); MEAN CORPUSCULAR HEMOGLOBIN 24.4 pg (28.0-32.0); MEAN CORPUSCULAR VOLUME 78.7 fL (80.0-94.0); MEAN PLATELET VOLUME 8.4 fl (7.4-10.4); MONOCYTES % 8.4 % (2.0-8.0); NEUTROPHILS % 68.4 % (40.0-76.0); PLATELET 304 x1000/uL (130-400); RED BLOOD CELL COUNT 4.24 mill/uL (4.7-6.1); RED CELL DISTRIBUTION WIDTH 20.8 % (11.6-14.6)
[2018-05-14 00:16] LABS: CHLORIDE 108 mEq/L (98-107)
[2018-05-14] MEDS ORDERED: SODIUM POLYSTYRENE SULFONATE 15 G/60 ML BOT PO ONE (01:15)
[2018-05-14 03:25] VITALS: BP 155/78
== END 2018-05-14 03:39 | disposition home or self-care (01) ==
LOC: ER 17:26
DX: T82.838A Hemorrhage due to vascular prosthetic devices, implants and grafts, initial encounter (principal); I13.2 Hypertensive heart and chronic kidney disease with heart failure and with stage 5 chronic kidney disease, or end stage renal disease; I50.9 Heart failure, unspecified; N18.6 End stage renal disease; J18.9 Pneumonia, unspecified organism; F14.10 Cocaine abuse, uncomplicated; F15.10 Other stimulant abuse, uncomplicated; Z87.891 Personal history of nicotine dependence; Z95.9 Presence of cardiac and vascular implant and graft, unspecified; Z79.899 Other long term (current) drug therapy; Z99.2 Dependence on renal dialysis
CPT/HCPCS: 36415; 93005; 99284

== ENCOUNTER 2018-09-27 14:04 | Inpatient (IN) | payer MEDICARE, MEDICAID ==
[~2018-09-27] VITALS: Ht 180.3 cm; Wt 93.0 kg
[~2018-09-27 14:04] MED LIST changes: -ASPI-1160 PO; -CALC667C PO; -CARV25TA47 PO; -CLON0.3T PO; -CLOP75TA15 PO; -FOLI1TAB63 PO; -HYDR-4135 PO; -HYDR100T26 PO; -LEVO500T2 MT; -LISI40TA4 PO; -SEVE800T8 MT; -SODIUM CHLORIDE 0.9% 500 ML IV ONE
[2018-09-27] MEDS ORDERED: ALBUTEROL (0.083%) 2.5MG/3ML NEB HHN STA (14:20)
[2018-09-27] MEDS ORDERED: NITROGLYCERIN 0.4MG TABLET SL SL PRN (14:30)
[2018-09-27] MEDS ORDERED: SODIUM POLYSTYRENE SULFONATE 15 G/60 ML BOT PO ONE (14:30)
[2018-09-27] MEDS ORDERED: SODIUM BICARBONATE 8.4% 1 MEQ/ML 50ML SYR IV ONE (14:30)
[2018-09-27] MEDS ORDERED: DEXTROSE 50% WATER 50ML SYRINGE IV ONE (14:30)
[2018-09-27] MEDS ORDERED: INSULIN REGULAR (HUMULIN R) 300UNITS/3ML IV ONE (14:30)
[2018-09-27 14:35] LABS: BASOPHILS % 0.8 % (0.0-2.0); EOSINOPHILS % 1.5 % (0.0-5.0); HEMATOCRIT. 42.8 % (42.0-52.0); HEMOGLOBIN. 13.6 g/dL (14.0-18.0); LYMPHOCYTES % 10.8 % (20.0-50.0); MEAN CORPUSCULAR VOLUME 81.7 fL (80.0-94.0); MEAN PLATELET VOLUME 9.9 fl (7.4-10.4); MONOCYTES % 7.2 % (2.0-8.0); NEUTROPHILS % 79.7 % (40.0-76.0); PLATELET 293 x1000/uL (130-400); RED BLOOD CELL COUNT 5.24 mill/uL (4.7-6.1); RED CELL DISTRIBUTION WIDTH 24.7 % (11.6-14.6)
[2018-09-27 14:40] LABS: CHLORIDE 111 mEq/L (98-107)
[2018-09-27 14:47] LABS: INR 1.2; PROTHROMBIN TIME 12.2 sec (9.6-11.0)
[2018-09-27] MEDS ORDERED: ACETAMINOPHEN 325MG TABLET PO PRN (15:30)
[2018-09-27] MEDS ORDERED: DIPHENHYDRAMINE 50MG/ML VIAL IV PRN (15:30)
[2018-09-27] MEDS ORDERED: MAGNESIUM/ALUMINUM HYDROXIDE/SIMETHICONE 30ML UDC PO PRN (15:30)
[2018-09-27] MEDS ORDERED: DOCUSATE SODIUM 100MG CAPSULE PO PRN (15:30)
[2018-09-27] MEDS ORDERED: ONDANSETRON HCL 4MG/2ML INJ IV PRN (15:30)
[2018-09-27] MEDS ORDERED: HYDROCODONE/ACETAMINOPHEN 5/325MG TABLET PO PRN (15:30)
[2018-09-27] MEDS ORDERED: IPRATROPIUM/ALBUTEROL 0.5-3(2.5)MG/3ML NEB INH PRN (15:30)
[2018-09-27] MEDS ORDERED: GUAIFENESIN 200MG/10ML SUGAR FREE UDC PO PRN (15:30)
[2018-09-27 16:22] LABS: PHOSPHORUS 8.6 mg/dL (2.5-4.9)
[2018-09-27] MEDS: CLONIDINE 0.1MG TABLET PO PRN (19:00)
[2018-09-27 20:14] VITALS: BP 206/161
[2018-09-27 20:22] VITALS: BP 206/161
[2018-09-27 23:30] VITALS: BP 199/130
[2018-09-28] VITALS (8 sets, daily range): BP systolic 103–189; BP diastolic 58–134
[2018-09-28 00:32] LABS: BASOPHILS % 0.6 % (0.0-2.0); EOSINOPHILS % 0.8 % (0.0-5.0); HEMOGLOBIN. 12.6 g/dL (14.0-18.0); LYMPHOCYTES % 12.4 % (20.0-50.0); MEAN CORPUSCULAR VOLUME 80.7 fL (80.0-94.0); MEAN PLATELET VOLUME 9.7 fl (7.4-10.4); MONOCYTES % 6.1 % (2.0-8.0); NEUTROPHILS % 80.1 % (40.0-76.0); PLATELET 277 x1000/uL (130-400); RED BLOOD CELL COUNT 4.83 mill/uL (4.7-6.1); RED CELL DISTRIBUTION WIDTH 24.5 % (11.6-14.6)
[2018-09-28] MEDS: HYDRALAZINE 20MG/ML VIAL IV PRN ×2 (00:41→06:34)
[2018-09-28 00:58] LABS: CREATINE KINASE MB FRACTION 7.4 ng/mL (0.5-3.6)
[2018-09-28] MEDS: CLONIDINE 0.1MG TABLET PO PRN (04:40)
[2018-09-28 06:13] LABS: BASOPHILS % 0.9 % (0.0-2.0); EOSINOPHILS % 2.2 % (0.0-5.0); HEMATOCRIT. 38.2 % (42.0-52.0); HEMOGLOBIN. 12.3 g/dL (14.0-18.0); LYMPHOCYTES % 14.9 % (20.0-50.0); MEAN CORPUSCULAR VOLUME 80.4 fL (80.0-94.0); PLATELET 295 x1000/uL (130-400); RED BLOOD CELL COUNT 4.75 mill/uL (4.7-6.1); RED CELL DISTRIBUTION WIDTH 24.2 % (11.6-14.6)
[2018-09-28 06:58] LABS: CHLORIDE 110 mEq/L (98-107)
[2018-09-28 07:13] LABS: CREATINE KINASE 497 IU/L (39-308)
[2018-09-28 07:14] LABS: HDL CHOLESTEROL 63 mg/dL (40-59)
[2018-09-28 07:15] LABS: LDL CHOLESTEROL 45 mg/dL (5-100)
[2018-09-28 07:19] LABS: CREATINE KINASE MB FRACTION 7.1 ng/mL (0.5-3.6)
[2018-09-28] MEDS: BENAZEPRIL 10MG TABLET PO SCH ×2 (10:00→12:11)
[2018-09-28] MEDS: CARVEDILOL 12.5MG TABLET PO SCH ×2 (10:00→12:12)
[2018-09-28] MEDS ORDERED: AMLODIPINE 10MG TABLET PO SCH (10:00)
[2018-09-28] MEDS: FOLIC ACID 1MG TABLET PO SCH ×2 (11:17→12:11)
[2018-09-28] MEDS: CLONIDINE 0.1MG TABLET PO SCH ×3 (15:00→22:00)
[2018-09-28] MEDS: HYDRALAZINE HCL 50MG TABLET PO SCH ×2 (15:00→22:00)
[2018-09-28] MEDS: NIFEDIPINE XL 90MG TAB PO SCH ×2 (15:00→17:37)
[2018-09-28] MEDS ORDERED: SEVE800T8 MT (18:14)
[2018-09-29 00:16] VITALS: BP 114/65
[2018-09-29 04:17] VITALS: BP 124/80
[2018-09-29] MEDS: CLONIDINE 0.1MG TABLET PO SCH ×2 (05:34→14:03)
[2018-09-29] MEDS: HYDRALAZINE HCL 50MG TABLET PO SCH ×2 (05:34→14:03)
[2018-09-29 08:00] VITALS: BP 147/87
[2018-09-29 08:30] LABS: BASOPHILS % 0.6 % (0.0-2.0); EOSINOPHILS % 5.4 % (0.0-5.0); HEMATOCRIT. 35.4 % (42.0-52.0); HEMOGLOBIN. 11.4 g/dL (14.0-18.0); LYMPHOCYTES % 15.6 % (20.0-50.0); MEAN CORPUSCULAR HEMOGLOBIN 25.9 pg (28.0-32.0); MEAN CORPUSCULAR VOLUME 80.3 fL (80.0-94.0); MEAN PLATELET VOLUME 9.2 fl (7.4-10.4); MONOCYTES % 8.4 % (2.0-8.0); PLATELET 217 x1000/uL (130-400); RED CELL DISTRIBUTION WIDTH 24.2 % (11.6-14.6)
[2018-09-29] MEDS: NIFEDIPINE XL 90MG TAB PO SCH (08:35)
[2018-09-29] MEDS ORDERED: CARVEDILOL 25MG TABLET PO SCH (09:00)
[2018-09-29 12:00] VITALS: BP 138/87
[2018-09-29 12:45] LABS: BG BASE EXCESS -4.8 mmol/L (-2.0-2.0); BG CARBOXYHEMOGLOBIN 0.9 % (0.5-1.5); BG DEOXYHEMOGLOBIN 3.2 % (0.0-5.0); BG FRACTION INSPIRED OXYGEN 21; BG HCO3 ACT 18.8 mmol/L (22.0-26.0); BG METHEMOGLOBIN 0.1 % (0.0-1.5); BG OXYGEN SATURATION 96.8 % (92.0-98.5); BG OXYHEMOGLOBIN 95.8 % (94.0-97.0); BG PCO2 30.3 mmHg (35.0-45.0); BG PO2 91.9 mmHg (75.0-100.0); BG SAMPLE SITE RIGHT RADIAL; BG TOTAL HEMOGLOBIN 11.8 g/dL (12.0-18.0); BG VENT MODE ROOM AIR
[2018-09-29 15:46] VITALS: BP 138/87
[2018-10-02 04:16] LABS: BARBITURATE SCREEN Negative ug/mL (Cutoff:0.1); BENZODIAZEPINE SCREEN Negative ng/mL (Cutoff:20); OPIATES SCREEN Negative ng/mL (Cutoff:5); PHENCYCLIDINE SCREEN Negative ng/mL (Cutoff:8)
[2018-11-05] MEDS ORDERED: CLON0.3T PO (11:24)
[2018-11-05] MEDS ORDERED: HYDR-4135 PO (11:24)
[2018-11-05] MEDS ORDERED: LISI40TA4 PO (11:24)
[2018-11-05] MEDS ORDERED: CALC667C PO (11:24)
[2018-11-05] MEDS ORDERED: CARV25TA47 PO (11:24)
[2018-11-05] MEDS ORDERED: FOLI1TAB63 PO (11:26)
[2018-11-05] MEDS ORDERED: SEVE800T8 MT (14:55)
[2018-11-15] MEDS ORDERED: CLOP75TA15 PO (11:16)
[2018-11-15] MEDS ORDERED: HYDR100T26 PO (11:16)
[2018-11-15] MEDS ORDERED: ASPI-1160 PO (11:16)
[2018-11-29] MEDS ORDERED: LEVO500T2 MT (12:14)
== END 2018-09-29 17:02 | disposition home or self-care (01) | DRG 640 ==
LOC: ER 14:04 → 6WST 14:56 → EDBEDREQ 14:58 → ENRESERV 15:28 → CANRESERV 15:28 → ENRESERV 17:00 → EDBEDREQSVC 17:04 → ENRESERV 18:17
PROVIDERS: ADMIT Internal Medicine; ATTEND Internal Medicine
PROC: 5A1D70Z Performance of Urinary Filtration, Intermittent, Less than 6 Hours Per Day (ICD-10-PCS; principal; 2018-09-27)
PROC: 5A1D70Z Performance of Urinary Filtration, Intermittent, Less than 6 Hours Per Day (ICD-10-PCS; 2018-09-28)
DX: E87.5 Hyperkalemia (principal); N18.6 End stage renal disease; J96.90 Respiratory failure, unspecified, unspecified whether with hypoxia or hypercapnia; I13.2 Hypertensive heart and chronic kidney disease with heart failure and with stage 5 chronic kidney disease, or end stage renal disease; I42.9 Cardiomyopathy, unspecified; E87.2 Acidosis; I50.9 Heart failure, unspecified; D64.9 Anemia, unspecified; E83.39 Other disorders of phosphorus metabolism; E83.41 Hypermagnesemia; E87.70 Fluid overload, unspecified; Z99.2 Dependence on renal dialysis; Z82.49 Family history of ischemic heart disease and other diseases of the circulatory system; Z87.891 Personal history of nicotine dependence; Z91.15 Patient's noncompliance with renal dialysis; Z79.899 Other long term (current) drug therapy; Z87.01 Personal history of pneumonia (recurrent); Z71.51 Drug abuse counseling and surveillance of drug abuser
CPT/HCPCS: 36415; 36600; 71045; 80048; 80061; 80307; 82375; 82550; 82553; 82805; 83735; 84100; 84443; 84484; 93005; 93306; 93970; 94640; 99291; J0360; J1815; J3490; J7611

== ENCOUNTER → 2018-09-27 | Day surgery (SDC) | payer MEDICARE, MEDICAID ==
[~2018-09-27] MED LIST changes: +ASPI-1160 PO; +CALC667C PO; +CARV25TA47 PO; +CLON0.3T PO; +CLOP75TA15 PO; +FOLI1TAB63 PO; +HYDR-4135 PO; +HYDR100T26 PO; +LEVO500T2 MT; +LISI40TA4 PO; +SEVE800T8 MT; +SODIUM CHLORIDE 0.9% 500 ML IV ONE
[2018-09-27 13:14] LABS: BASOPHILS % 1.4 % (0.0-2.0); EOSINOPHILS % 2.1 % (0.0-5.0); HEMATOCRIT. 41.4 % (42.0-52.0); HEMOGLOBIN. 12.9 g/dL (14.0-18.0); LYMPHOCYTES % 10.5 % (20.0-50.0); MEAN CORPUSCULAR HEMOGLOBIN 25.4 pg (28.0-32.0); MEAN CORPUSCULAR VOLUME 81.7 fL (80.0-94.0); MEAN PLATELET VOLUME 9.3 fl (7.4-10.4); MONOCYTES % 6.7 % (2.0-8.0); NEUTROPHILS % 79.3 % (40.0-76.0); PLATELET 292 x1000/uL (130-400); RED BLOOD CELL COUNT 5.07 mill/uL (4.7-6.1); RED CELL DISTRIBUTION WIDTH 24.3 % (11.6-14.6)
[2018-09-27 13:22] LABS: INR 1.2; PARTIAL THROMBOPLASTIN TIME 29.5 sec (23.4-31.0); PROTHROMBIN TIME 12.6 sec (9.6-11.0)
[2018-09-27 14:01] LABS: PLATELET ESTIMATE NORMAL
== END | disposition home or self-care (01) ==
LOC: OR 12:09
PROVIDERS: ATTEND Surgery Vascular Surgery
DX: N18.6 End stage renal disease (principal); Z53.8 Procedure and treatment not carried out for other reasons; R94.31 Abnormal electrocardiogram [ECG] [EKG]
CPT/HCPCS: 36415; 80048; 93005

== ENCOUNTER 2018-11-08 06:01 | Day surgery (SDC) | payer MEDICARE, MEDICAID ==
[~2018-11-08] VITALS: Ht 177.8 cm; Wt 81.0 kg
[~2018-11-08 06:01] MED LIST changes: -BENA40TA9 PO; +CALC667C PO; -CARV12.545 PO; +CARV25TA47 PO; +CLON0.3T PO; -FOLI-43 PO; +FOLI1TAB63 PO; +HYDR-4135 PO; +LISI40TA4 PO; -NIFE30TA94 PO; +SEVE800T8 MT
[2018-11-08] MEDS ORDERED: NORMAL SALINE 0.9% 10 ML SYR ONE (06:53)
[2018-11-08] MEDS ORDERED: LIDOCAINE HCL 1% 20ML VIAL (Pyxis) INJ ONE (06:53)
[2018-11-08] MEDS ORDERED: BACITRACIN 15GM TUBE TOP ONE (06:53)
[2018-11-08] MEDS ORDERED: BUPIVACAINE HCL/PF 0.5% (5MG/ML) 10ML ONE (06:53)
[2018-11-08] MEDS ORDERED: HEPARIN SODIUM 1,000 UNIT/1ML VIAL IV ONE (06:53)
[2018-11-08] MEDS ORDERED: THROMBIN (BOVINE) 5000 UNITS/VIAL TOP ONE (06:54)
[2018-11-08] MEDS ORDERED: BACITRACIN 50,000 UNITS/VIAL ONE (06:54)
[2018-11-08 07:05] LABS: HEMATOCRIT. 35.7 % (42.0-52.0); HEMOGLOBIN. 11.5 g/dL (14.0-18.0); MEAN CORPUSCULAR HEMOGLOBIN 27.3 pg (28.0-32.0); MEAN CORPUSCULAR VOLUME 84.8 fL (80.0-94.0); MEAN PLATELET VOLUME 8.7 fl (7.4-10.4); MONOCYTES % 8.6 % (2.0-8.0); NEUTROPHILS % 64.4 % (40.0-76.0); PLATELET 177 x1000/uL (130-400); RED CELL DISTRIBUTION WIDTH 21.1 % (11.6-14.6)
[2018-11-08 07:13] LABS: INR 1.1; PARTIAL THROMBOPLASTIN TIME 28.9 sec (23.4-31.0); PROTHROMBIN TIME 10.9 sec (9.6-11.0)
[2018-11-08] MEDS ORDERED: SODIUM CHLORIDE 0.9% 500 ML IV ONE (07:15)
[2018-11-08 07:20] LABS: *AMPHETAMINES SCREEN URINE PRESUMTIVE POSITIVE (NEGATIVE); *BARBITURATES SCREEN URINE NEGATIVE (NEGATIVE); *COCAINE SCREEN URINE NEGATIVE (NEGATIVE); METHADONE URINE SCREEN NEGATIVE (NEGATIVE)
[2018-11-08 07:21] LABS: *BENZODIAZEPINES SCREEN URINE NEGATIVE (NEGATIVE); CANNABINOID URINE SCREEN NEGATIVE (NEGATIVE); OPIATES URINE SCREEN NEGATIVE (NEGATIVE); PHENCYCLIDINE URINE SCREEN NEGATIVE (NEGATIVE)
[2018-11-08] MEDS ORDERED: ROPIVACAINE HCL 10MG/ML 20 ML VIAL EPI ONE (07:43)
[2018-11-08] MEDS ORDERED: MIDAZOLAM HCL 5 MG/5 ML VIAL ONE (07:51)
[2018-11-08] MEDS ORDERED: FLUMAZENIL 0.1 MG/ML 5ML VIAL IV ONE (08:01)
[2018-11-15] MEDS ORDERED: HYDR100T26 PO (11:16)
[2018-11-15] MEDS ORDERED: ASPI-1160 PO (11:16)
[2018-11-15] MEDS ORDERED: CLOP75TA15 PO (11:16)
[2018-11-29] MEDS ORDERED: LEVO500T2 MT (12:14)
== END 2018-11-08 12:40 | disposition home or self-care (01) ==
LOC: OR 06:01
PROVIDERS: ATTEND Surgery Vascular Surgery
DX: I13.2 Hypertensive heart and chronic kidney disease with heart failure and with stage 5 chronic kidney disease, or end stage renal disease (principal); N18.6 End stage renal disease; I50.9 Heart failure, unspecified; I42.9 Cardiomyopathy, unspecified; K21.9 Gastro-esophageal reflux disease without esophagitis; J44.9 Chronic obstructive pulmonary disease, unspecified; D64.9 Anemia, unspecified; Z79.899 Other long term (current) drug therapy; Z53.8 Procedure and treatment not carried out for other reasons
CPT/HCPCS: 36415; 80048; 80305; 85025; 85610; 85730; 93005; J2250; J2795; J3490; J7040; J1644

== ENCOUNTER 2018-11-13 05:06 | Inpatient (IN) | payer MEDICARE, MEDICAID ==
[~2018-11-13] VITALS: Ht 180.3 cm; Wt 81.6 kg
[2018-11-13 06:22] LABS: BASOPHILS % 0.7 % (0.0-2.0); HEMATOCRIT. 39.3 % (42.0-52.0); HEMOGLOBIN. 12.6 g/dL (14.0-18.0); LYMPHOCYTES % 19.6 % (20.0-50.0); MEAN CORPUSCULAR HEMOGLOBIN 27.4 pg (28.0-32.0); MEAN CORPUSCULAR VOLUME 85.7 fL (80.0-94.0); MONOCYTES % 11.6 % (2.0-8.0); NEUTROPHILS % 60.1 % (40.0-76.0); PLATELET 169 x1000/uL (130-400); RED BLOOD CELL COUNT 4.58 mill/uL (4.7-6.1); RED CELL DISTRIBUTION WIDTH 20.7 % (11.6-14.6)
[2018-11-13 06:31] LABS: CHLORIDE 105 mEq/L (98-107)
[2018-11-13 06:32] LABS: INR 1.1; PARTIAL THROMBOPLASTIN TIME 27.5 sec (23.4-31.0); PROTHROMBIN TIME 11.1 sec (9.6-11.0)
[2018-11-13 06:51] LABS: PHOSPHORUS 8.4 mg/dL (2.5-4.9)
[2018-11-13] MEDS ORDERED: MORPHINE SULFATE 4 MG/ML CPJ (NOT FOR IM USE) IV STA ×2 (07:02→07:32)
[2018-11-13] MEDS ORDERED: ONDANSETRON HCL 4MG/2ML INJ IV STA (07:02)
[2018-11-13] MEDS ORDERED: NITROGLYCERIN OINT 1GM/INCH UDPKT TD ONE ×2 (07:15)
[2018-11-13] MEDS ORDERED: HYDRALAZINE 20MG/ML VIAL IV ONE ×2 (07:15→09:30)
[2018-11-13] MEDS ORDERED: MORPHINE SULFATE 2 MG/ML CPJ (NOT FOR IM USE) IV NR (07:49)
[2018-11-13 09:18] LABS: T4 FREE 1.04 ng/dL (0.76-1.46)
[2018-11-13] MEDS ORDERED: CLONIDINE 0.1MG TABLET PO ONE (09:30)
[2018-11-13 10:20] VITALS: BP 173/117
[2018-11-13] MEDS ORDERED: CLONIDINE 0.1MG TABLET PO PRN (10:30)
[2018-11-13] MEDS ORDERED: [UNRECOGNIZED DRUG - REMARK] PO SCH (10:30)
[2018-11-13] MEDS ORDERED: ONDANSETRON HCL 4MG/2ML INJ IV PRN (10:30)
[2018-11-13] MEDS ORDERED: ACETAMINOPHEN 650MG/20.3ML UDC GT PRN (10:30)
[2018-11-13] MEDS ORDERED: IPRATROPIUM/ALBUTEROL 0.5-3(2.5)MG/3ML NEB INH PRN (10:30)
[2018-11-13] MEDS ORDERED: DOCUSATE SODIUM 100MG CAPSULE PO PRN (10:30)
[2018-11-13] MEDS ORDERED: MAGNESIUM/ALUMINUM HYDROXIDE/SIMETHICONE 30ML UDC PO PRN (10:30)
[2018-11-13] MEDS ORDERED: DIPHENHYDRAMINE 50MG/ML VIAL IV PRN (10:30)
[2018-11-13] MEDS ORDERED: MEDICATION NOT ON FORMULARY EA (Sevelamer Carbonate (Renvela) 1 TAB) MT SCH (10:30)
[2018-11-13] MEDS ORDERED: ACETAMINOPHEN 650MG SUPP PR PRN (10:30)
[2018-11-13] MEDS: CLONIDINE 0.3MG TABLET PO SCH ×3 (11:28→21:24)
[2018-11-13] MEDS: LISINOPRIL 40MG TABLET PO SCH (11:28)
[2018-11-13] MEDS: AMLODIPINE 10MG TABLET PO SCH (11:28)
[2018-11-13] MEDS: HYDRALAZINE HCL 50MG TABLET PO SCH ×3 (11:29→21:24)
[2018-11-13 12:00] VITALS: BP 180/126
[2018-11-13] MEDS: SEVELAMER CARBONATE 800 MG TABLET PO SCH ×2 (14:01→17:38)
[2018-11-13 14:12] LABS: CLARITY URINE CLEAR (CLEAR); COLOR URINE YELLOW (YELLOW); KETONES URINE NEGATIVE (NEGATIVE); LEUKOCYTE ESTERASE URINE NEGATIVE (NEGATIVE); NITRITE URINE NEGATIVE (NEGATIVE); OCCULT BLOOD URINE TRACE (NEGATIVE); PH URINE 8.5 (4.5-8.0); PROTEIN URINE 2+ (NEGATIVE); UROBILINOGEN URINE 0.2 E.U./dL (0.2-1.0)
[2018-11-13 14:26] LABS: *AMPHETAMINES SCREEN URINE NEGATIVE (NEGATIVE); *BARBITURATES SCREEN URINE NEGATIVE (NEGATIVE); *COCAINE SCREEN URINE NEGATIVE (NEGATIVE)
[2018-11-13 14:27] LABS: *BENZODIAZEPINES SCREEN URINE NEGATIVE (NEGATIVE); CANNABINOID URINE SCREEN NEGATIVE (NEGATIVE); METHADONE URINE SCREEN NEGATIVE (NEGATIVE); OPIATES URINE SCREEN NEGATIVE (NEGATIVE); PHENCYCLIDINE URINE SCREEN NEGATIVE (NEGATIVE)
[2018-11-13 16:00] VITALS: BP 158/85
[2018-11-13 16:25] LABS: CREATINE KINASE MB FRACTION 6.2 ng/mL (0.5-3.6)
[2018-11-13 20:00] VITALS: BP 172/123
[2018-11-13] MEDS: ENOXAPARIN 30MG/0.3ML SYR SUBCUT SCH (20:16)
[2018-11-13] MEDS: CARVEDILOL 12.5MG TABLET PO SCH (21:24)
[2018-11-13 23:37] LABS: CREATINE KINASE MB FRACTION 4.5 ng/mL (0.5-3.6)
[2018-11-14] VITALS: BP 135/72
[2018-11-14 04:00] VITALS: BP 156/103
[2018-11-14] MEDS: HYDRALAZINE HCL 50MG TABLET PO SCH (05:25)
[2018-11-14] MEDS: HYDROCODONE/ACETAMINOPHEN 5/325MG TABLET PO PRN (05:25)
[2018-11-14] MEDS: CLONIDINE 0.3MG TABLET PO SCH ×3 (05:26→21:17)
[2018-11-14 07:46] LABS: BASOPHILS % 1.1 % (0.0-2.0); EOSINOPHILS % 7.1 % (0.0-5.0); HEMATOCRIT. 39.2 % (42.0-52.0); HEMOGLOBIN. 12.4 g/dL (14.0-18.0); LYMPHOCYTES % 17.6 % (20.0-50.0); MEAN CORPUSCULAR HEMOGLOBIN 27.2 pg (28.0-32.0); MEAN CORPUSCULAR VOLUME 85.9 fL (80.0-94.0); MEAN PLATELET VOLUME 9.1 fl (7.4-10.4); NEUTROPHILS % 62.2 % (40.0-76.0); PLATELET 201 x1000/uL (130-400); RED BLOOD CELL COUNT 4.56 mill/uL (4.7-6.1); RED CELL DISTRIBUTION WIDTH 20.6 % (11.6-14.6)
[2018-11-14 08:00] VITALS: BP 146/101
[2018-11-14] MEDS: CARVEDILOL 12.5MG TABLET PO SCH ×2 (08:09→21:17)
[2018-11-14] MEDS: SEVELAMER CARBONATE 800 MG TABLET PO SCH ×3 (08:09→18:06)
[2018-11-14] MEDS: FOLIC ACID/VITAMIN B COMP W-C TABLET PO SCH (08:13)
[2018-11-14] MEDS: LISINOPRIL 40MG TABLET PO SCH (08:13)
[2018-11-14] MEDS: AMLODIPINE 10MG TABLET PO SCH (08:13)
[2018-11-14 08:17] LABS: CHLORIDE 104 mEq/L (98-107)
[2018-11-14 08:31] LABS: LDL CHOLESTEROL 40 mg/dL (5-100)
[2018-11-14 08:32] LABS: CREATINE KINASE 207 IU/L (39-308); HDL CHOLESTEROL 85 mg/dL (40-59)
[2018-11-14 08:37] LABS: CREATINE KINASE MB FRACTION 3.9 ng/mL (0.5-3.6)
[2018-11-14 12:00] VITALS: BP 120/71
[2018-11-14] MEDS: HYDRALAZINE HCL 100MG TABLET PO SCH ×2 (13:16→21:16)
[2018-11-14 16:00] VITALS: BP 121/77
[2018-11-14] MEDS: ENOXAPARIN 30MG/0.3ML SYR SUBCUT SCH (18:09)
[2018-11-14 20:57] VITALS: BP 143/90
[2018-11-15 00:24] VITALS: BP 114/75
[2018-11-15 04:00] VITALS: BP 128/87
[2018-11-15] MEDS: HYDRALAZINE HCL 100MG TABLET PO SCH (05:24)
[2018-11-15] MEDS: CLONIDINE 0.3MG TABLET PO SCH (05:24)
[2018-11-15 07:09] LABS: BASOPHILS % 0.9 % (0.0-2.0); EOSINOPHILS % 8.4 % (0.0-5.0); HEMATOCRIT. 39.4 % (42.0-52.0); HEMOGLOBIN. 12.6 g/dL (14.0-18.0); LYMPHOCYTES % 19.9 % (20.0-50.0); MEAN CORPUSCULAR HEMOGLOBIN 27.4 pg (28.0-32.0); MEAN CORPUSCULAR VOLUME 85.9 fL (80.0-94.0); MEAN PLATELET VOLUME 9.4 fl (7.4-10.4); MONOCYTES % 12.6 % (2.0-8.0); NEUTROPHILS % 58.2 % (40.0-76.0); PLATELET 173 x1000/uL (130-400); RED BLOOD CELL COUNT 4.58 mill/uL (4.7-6.1); RED CELL DISTRIBUTION WIDTH 21.1 % (11.6-14.6)
[2018-11-15 08:00] VITALS: BP 120/89
[2018-11-15] MEDS ORDERED: ALBUTEROL (0.083%) 2.5MG/3ML NEB HHN NR (08:15)
[2018-11-15] MEDS: AMLODIPINE 10MG TABLET PO SCH (08:45)
[2018-11-15] MEDS: CARVEDILOL 12.5MG TABLET PO SCH (08:45)
[2018-11-15] MEDS: FOLIC ACID/VITAMIN B COMP W-C TABLET PO SCH (08:45)
[2018-11-15] MEDS: SEVELAMER CARBONATE 800 MG TABLET PO SCH ×2 (08:45→12:10)
[2018-11-15] MEDS: LISINOPRIL 40MG TABLET PO SCH (08:45)
[2018-11-15] MEDS ORDERED: SODIUM POLYSTYRENE SULFONATE 15 G/60 ML BOT PO NR (09:30)
[2018-11-15 11:03] VITALS: BP_SYST 103; BP_SYST 124; BP_DIAS 68; BP_DIAS 83
[2018-11-15] MEDS ORDERED: ASPI-1160 PO (11:16)
[2018-11-15] MEDS ORDERED: HYDR100T26 PO (11:16)
[2018-11-15] MEDS ORDERED: CLOP75TA15 PO (11:16)
[2018-11-15] MEDS ORDERED: CLOPIDOGREL 75MG TABLET PO SCH (11:25)
[2018-11-15 12:00] VITALS: BP 103/68
[2018-11-15 12:09] VITALS: BP 124/83
[2018-11-15] MEDS: HYDROCODONE/ACETAMINOPHEN 5/325MG TABLET PO PRN (12:09)
[2018-11-16] MEDS ORDERED: ASPIRIN 81MG TABLET PO SCH (09:00)
[2018-11-29] MEDS ORDERED: LEVO500T2 MT (12:14)
== END 2018-11-15 14:50 | disposition home or self-care (01) | DRG 280 ==
LOC: ER 05:06 → 7WST 07:37 → EDBEDREQ 07:43 → ENRESERV 08:05
PROVIDERS: ADMIT Family Medicine; ATTEND Family Medicine
PROC: 5A1D70Z Performance of Urinary Filtration, Intermittent, Less than 6 Hours Per Day (ICD-10-PCS; principal; 2018-11-13)
PROC: 5A1D70Z Performance of Urinary Filtration, Intermittent, Less than 6 Hours Per Day (ICD-10-PCS; 2018-11-14)
DX: I13.2 Hypertensive heart and chronic kidney disease with heart failure and with stage 5 chronic kidney disease, or end stage renal disease (principal); I21.4 Non-ST elevation (NSTEMI) myocardial infarction; N18.6 End stage renal disease; I50.33 Acute on chronic diastolic (congestive) heart failure; I42.9 Cardiomyopathy, unspecified; E11.22 Type 2 diabetes mellitus with diabetic chronic kidney disease; F15.90 Other stimulant use, unspecified, uncomplicated; I25.10 Atherosclerotic heart disease of native coronary artery without angina pectoris; D63.1 Anemia in chronic kidney disease; E78.5 Hyperlipidemia, unspecified; E83.39 Other disorders of phosphorus metabolism; I25.2 Old myocardial infarction; Z87.891 Personal history of nicotine dependence; Z79.899 Other long term (current) drug therapy; Z87.01 Personal history of pneumonia (recurrent); Z91.15 Patient's noncompliance with renal dialysis; Z99.2 Dependence on renal dialysis
CPT/HCPCS: 36415; 71045; 80048; 80061; 80305; 82550; 82553; 82962; 83036; 83735; 83880; 84100; 84439; 84443; 84484; 85379; 93005; 93306; 99285; J0360; J1650; J2270; J2405

== ENCOUNTER 2018-12-18 02:43 | Inpatient (IN) | payer MEDICARE, OTHER ==
[~2018-12-18] VITALS: Ht 182.9 cm; Wt 84.8 kg
[~2018-12-18 02:43] MED LIST changes: +ASPI-1160 PO; +CLOP75TA15 PO; +HYDR100T26 PO; +LEVO500T2 MT
[2018-12-18] MEDS ORDERED: ASPIRIN 81MG TABLET PO ONE (03:15)
[2018-12-18] MEDS ORDERED: DIPHENHYDRAMINE 25MG CAPSULE PO ONE (03:15)
[2018-12-18] MEDS: NITROGLYCERIN 0.4MG TABLET SL SL PRN ×2 (03:34→04:40)
[2018-12-18 04:07] LABS: CHLORIDE 111 mEq/L (98-107)
[2018-12-18 04:12] LABS: BASOPHILS % 1.1 % (0.0-2.0); EOSINOPHILS % 5.6 % (0.0-5.0); HEMATOCRIT. 31.2 % (42.0-52.0); HEMOGLOBIN. 10.1 g/dL (14.0-18.0); LYMPHOCYTES % 15.3 % (20.0-50.0); MEAN CORPUSCULAR HEMOGLOBIN 27.9 pg (28.0-32.0); MEAN CORPUSCULAR VOLUME 85.9 fL (80.0-94.0); MEAN PLATELET VOLUME 9.1 fl (7.4-10.4); MONOCYTES % 10.6 % (2.0-8.0); NEUTROPHILS % 67.4 % (40.0-76.0); PLATELET 156 x1000/uL (130-400); RED BLOOD CELL COUNT 3.63 mill/uL (4.7-6.1); RED CELL DISTRIBUTION WIDTH 18.4 % (11.6-14.6)
[2018-12-18] MEDS ORDERED: FUROSEMIDE 100MG/10ML VIAL IV NR (04:31)
[2018-12-18] MEDS ORDERED: INSULIN REGULAR (HUMULIN R) 300UNITS/3ML IV NR (04:45)
[2018-12-18] MEDS ORDERED: SODIUM BICARBONATE 8.4% 1 MEQ/ML 50ML SYR IV NR (04:45)
[2018-12-18] MEDS: DEXTROSE 50% WATER 50ML SYRINGE IV NR ×2 (04:45→05:49)
[2018-12-18] MEDS: CALCIUM CHLORIDE 1GM/10ML SYR IV NR ×2 (04:45→05:49)
[2018-12-18] MEDS ORDERED: HYDRALAZINE 20MG/ML VIAL IV ONE (07:30)
[2018-12-18 08:30] VITALS: BP 177/107
[2018-12-18] MEDS ORDERED: ZOLPIDEM TARTRATE 5MG TABLET PO PRN (09:00)
[2018-12-18] MEDS ORDERED: LORAZEPAM 0.5MG TABLET PO PRN (09:00)
[2018-12-18] MEDS ORDERED: NITROGLYCERIN 0.4MG TABLET SL SL PRN (09:00)
[2018-12-18] MEDS ORDERED: DIPHENHYDRAMINE 50MG/ML VIAL IV PRN (09:00)
[2018-12-18] MEDS ORDERED: GUAIFENESIN 200MG/10ML SUGAR FREE UDC PO PRN (09:00)
[2018-12-18] MEDS ORDERED: MAGNESIUM/ALUMINUM HYDROXIDE/SIMETHICONE 30ML UDC PO PRN (09:00)
[2018-12-18] MEDS ORDERED: IPRATROPIUM/ALBUTEROL 0.5-3(2.5)MG/3ML NEB INH PRN (09:00)
[2018-12-18] MEDS ORDERED: ONDANSETRON HCL 4MG/2ML INJ IV PRN (09:00)
[2018-12-18] MEDS ORDERED: DOCUSATE SODIUM 100MG CAPSULE PO PRN (09:00)
[2018-12-18] MEDS ORDERED: CLONIDINE 0.1MG TABLET PO PRN (09:00)
[2018-12-18] MEDS: FOLIC ACID/VITAMIN B COMP W-C TABLET PO SCH (10:07)
[2018-12-18] MEDS: FAMOTIDINE 20MG TABLET PO SCH (10:07)
[2018-12-18] MEDS: AMLODIPINE 10MG TABLET PO SCH (10:07)
[2018-12-18] MEDS: ASPIRIN 325MG EC TABLET PO SCH (10:08)
[2018-12-18] MEDS: ENOXAPARIN 30MG/0.3ML SYR SUBCUT SCH (10:08)
[2018-12-18 11:20] VITALS: BP 180/115
[2018-12-18] MEDS: CLONIDINE 0.3MG TABLET PO SCH ×2 (14:00→21:01)
[2018-12-18] MEDS: SEVELAMER CARBONATE 800 MG TABLET PO SCH ×2 (14:23→17:50)
[2018-12-18] MEDS: HYDRALAZINE HCL 50MG TABLET PO SCH ×2 (14:23→21:01)
[2018-12-18 15:34] VITALS: BP 178/117
[2018-12-18 17:20] LABS: CREATINE KINASE MB FRACTION 12.8 ng/mL (0.5-3.6)
[2018-12-18 20:00] VITALS: BP 163/103
[2018-12-18 23:55] LABS: CREATINE KINASE MB FRACTION 10.8 ng/mL (0.5-3.6)
[2018-12-19] VITALS: BP 153/116
[2018-12-19 04:00] VITALS: BP 155/99
[2018-12-19] MEDS: ACETAMINOPHEN 325MG TABLET PO PRN (04:04)
[2018-12-19] MEDS: HYDRALAZINE HCL 50MG TABLET PO SCH ×3 (05:32→21:20)
[2018-12-19] MEDS: CLONIDINE 0.3MG TABLET PO SCH ×3 (05:32→21:20)
[2018-12-19 06:59] LABS: BASOPHILS % 0.9 % (0.0-2.0); EOSINOPHILS % 6.3 % (0.0-5.0); HEMATOCRIT. 33.9 % (42.0-52.0); LYMPHOCYTES % 13.8 % (20.0-50.0); MEAN CORPUSCULAR HEMOGLOBIN 27.9 pg (28.0-32.0); MEAN PLATELET VOLUME 9.2 fl (7.4-10.4); MONOCYTES % 11.4 % (2.0-8.0); NEUTROPHILS % 67.6 % (40.0-76.0); PLATELET 169 x1000/uL (130-400); RED BLOOD CELL COUNT 3.94 mill/uL (4.7-6.1); RED CELL DISTRIBUTION WIDTH 18.6 % (11.6-14.6)
[2018-12-19 08:00] VITALS: BP 147/111
[2018-12-19] MEDS: ENOXAPARIN 30MG/0.3ML SYR SUBCUT SCH (08:07)
[2018-12-19] MEDS: ASPIRIN 325MG EC TABLET PO SCH (08:08)
[2018-12-19] MEDS: AMLODIPINE 10MG TABLET PO SCH (08:08)
[2018-12-19] MEDS: SEVELAMER CARBONATE 800 MG TABLET PO SCH ×3 (08:08→18:14)
[2018-12-19] MEDS: FOLIC ACID/VITAMIN B COMP W-C TABLET PO SCH (08:08)
[2018-12-19] MEDS: FAMOTIDINE 20MG TABLET PO SCH (08:08)
[2018-12-19 10:05] LABS: *AMPHETAMINES SCREEN URINE PRESUMTIVE POSITIVE (NEGATIVE); *BARBITURATES SCREEN URINE NEGATIVE (NEGATIVE); OPIATES URINE SCREEN NEGATIVE (NEGATIVE); PHENCYCLIDINE URINE SCREEN NEGATIVE (NEGATIVE)
[2018-12-19 10:06] LABS: *BENZODIAZEPINES SCREEN URINE NEGATIVE (NEGATIVE); *COCAINE SCREEN URINE NEGATIVE (NEGATIVE); METHADONE URINE SCREEN NEGATIVE (NEGATIVE)
[2018-12-19 10:08] LABS: CANNABINOID URINE SCREEN NEGATIVE (NEGATIVE)
[2018-12-19 12:00] VITALS: BP 115/89
[2018-12-19 16:00] VITALS: BP 139/83
[2018-12-19 20:00] VITALS: BP 151/98
[2018-12-20] VITALS (7 sets, daily range): BP systolic 131–168; BP diastolic 81–111
[2018-12-20] MEDS: ACETAMINOPHEN 325MG TABLET PO PRN ×2 (01:09→21:51)
[2018-12-20] MEDS: HYDRALAZINE HCL 50MG TABLET PO SCH ×3 (05:26→21:41)
[2018-12-20] MEDS: CLONIDINE 0.3MG TABLET PO SCH ×3 (05:26→21:41)
[2018-12-20] MEDS: SEVELAMER CARBONATE 800 MG TABLET PO SCH ×2 (08:37→18:48)
[2018-12-20] MEDS: FAMOTIDINE 20MG TABLET PO SCH (08:37)
[2018-12-20] MEDS: FOLIC ACID/VITAMIN B COMP W-C TABLET PO SCH (08:37)
[2018-12-20] MEDS: ASPIRIN 325MG EC TABLET PO SCH (08:37)
[2018-12-20] MEDS: ENOXAPARIN 30MG/0.3ML SYR SUBCUT SCH (08:38)
[2018-12-20] MEDS: AMLODIPINE 10MG TABLET PO SCH (08:38)
[2018-12-20 11:19] LABS: BASOPHILS % 0.6 % (0.0-2.0); EOSINOPHILS % 6.3 % (0.0-5.0); HEMATOCRIT. 32.8 % (42.0-52.0); HEMOGLOBIN. 10.8 g/dL (14.0-18.0); LYMPHOCYTES % 15.8 % (20.0-50.0); MEAN CORPUSCULAR VOLUME 84.8 fL (80.0-94.0); MONOCYTES % 12.2 % (2.0-8.0); NEUTROPHILS % 65.1 % (40.0-76.0); PLATELET 157 x1000/uL (130-400); RED BLOOD CELL COUNT 3.87 mill/uL (4.7-6.1); RED CELL DISTRIBUTION WIDTH 18.8 % (11.6-14.6)
[2018-12-21] VITALS (8 sets, daily range): BP systolic 110–151; BP diastolic 70–98
[2018-12-21] MEDS: CLONIDINE 0.3MG TABLET PO SCH ×3 (05:38→21:00)
[2018-12-21] MEDS: HYDRALAZINE HCL 50MG TABLET PO SCH ×3 (05:38→21:00)
[2018-12-21 07:00] LABS: BASOPHILS % 0.9 % (0.0-2.0); EOSINOPHILS % 5.2 % (0.0-5.0); HEMATOCRIT. 32.6 % (42.0-52.0); HEMOGLOBIN. 10.7 g/dL (14.0-18.0); LYMPHOCYTES % 15.5 % (20.0-50.0); MEAN CORPUSCULAR HEMOGLOBIN 27.9 pg (28.0-32.0); MEAN CORPUSCULAR VOLUME 84.8 fL (80.0-94.0); MEAN PLATELET VOLUME 9.6 fl (7.4-10.4); MONOCYTES % 14.1 % (2.0-8.0); NEUTROPHILS % 64.3 % (40.0-76.0); PLATELET 160 x1000/uL (130-400); RED BLOOD CELL COUNT 3.85 mill/uL (4.7-6.1); RED CELL DISTRIBUTION WIDTH 18.7 % (11.6-14.6)
[2018-12-21] MEDS: ENOXAPARIN 30MG/0.3ML SYR SUBCUT SCH (09:00)
[2018-12-21] MEDS: ASPIRIN 325MG EC TABLET PO SCH (09:14)
[2018-12-21] MEDS: AMLODIPINE 10MG TABLET PO SCH (09:14)
[2018-12-21] MEDS: FAMOTIDINE 20MG TABLET PO SCH (09:14)
[2018-12-21] MEDS: SEVELAMER CARBONATE 800 MG TABLET PO SCH ×2 (09:14→13:28)
[2018-12-21] MEDS: FOLIC ACID/VITAMIN B COMP W-C TABLET PO SCH (09:14)
[2018-12-21] MEDS: TRAMADOL 50MG TABLET PO PRN ×2 (13:33→20:55)
== END 2018-12-21 21:52 | DRG 640 ==
LOC: ER 02:43 → 6WST 04:33
PROVIDERS: ADMIT Internal Medicine; ATTEND Internal Medicine
PROC: 5A1D70Z Performance of Urinary Filtration, Intermittent, Less than 6 Hours Per Day (ICD-10-PCS; principal; 2018-12-18)
PROC: 5A1D70Z Performance of Urinary Filtration, Intermittent, Less than 6 Hours Per Day (ICD-10-PCS; 2018-12-20)
DX: E87.70 Fluid overload, unspecified (principal); I50.33 Acute on chronic diastolic (congestive) heart failure; N18.6 End stage renal disease; I13.2 Hypertensive heart and chronic kidney disease with heart failure and with stage 5 chronic kidney disease, or end stage renal disease; E44.1 Mild protein-calorie malnutrition; M62.82 Rhabdomyolysis; E87.2 Acidosis; E87.5 Hyperkalemia; E83.51 Hypocalcemia; D63.8 Anemia in other chronic diseases classified elsewhere; Z99.2 Dependence on renal dialysis; Z59.0 Homelessness; Z68.25 Body mass index [BMI] 25.0-25.9, adult; Z79.899 Other long term (current) drug therapy; Z79.82 Long term (current) use of aspirin
CPT/HCPCS: 36415; 71045; 80048; 80061; 80305; 82550; 82553; 82962; 83036; 83880; 84484; 93005; 93970; 96374; 96375; 99285; J0360; J1650; J1815; J1940; J3490; Q0163

== ENCOUNTER 2018-12-21 22:47 | Emergency (ER) | payer MEDICARE, OTHER ==
[~2018-12-21] VITALS: Ht 182.9 cm; Wt 100.0 kg
[~2018-12-21 22:47] MED LIST changes: -ASPI-1160 PO; -CALC667C PO; -HYDR-4135 PO; -HYDR100T26 PO; -LEVO500T2 MT
[2018-12-21] MEDS ORDERED: HYDROCODONE/ACETAMINOPHEN 5/325MG TABLET PO ONE (23:30)
[2018-12-22] MEDS ORDERED: CLONIDINE 0.3MG TABLET PO ONE
[2018-12-22] MEDS ORDERED: CLONIDINE 0.1MG TABLET PO ONE ×2 (03:45→08:30)
[2018-12-22] MEDS ORDERED: HYDROCODONE/ACETAMINOPHEN 5/325MG TABLET PO ONE ×2 (03:45→09:00)
[2018-12-22] MEDS ORDERED: AMLODIPINE 10MG TABLET PO SCH (16:15)
[2018-12-22] MEDS ORDERED: ACETAMINOPHEN 325MG TABLET PO STA (17:43)
[2018-12-22 19:01] VITALS: BP 149/97
== END 2018-12-22 19:27 ==
LOC: ER 22:47 → SUPCPDRO 12-23 02:49
DX: I13.0 Hypertensive heart and chronic kidney disease with heart failure and stage 1 through stage 4 chronic kidney disease, or unspecified chronic kidney disease (principal); N18.9 Chronic kidney disease, unspecified; I50.9 Heart failure, unspecified; K08.89 Other specified disorders of teeth and supporting structures; Z99.2 Dependence on renal dialysis; Z95.9 Presence of cardiac and vascular implant and graft, unspecified; Z79.899 Other long term (current) drug therapy
CPT/HCPCS: 99284

== ENCOUNTER 2019-01-14 06:12 | Day surgery (SDC) | payer MEDICARE, OTHER ==
[~2019-01-14] VITALS: Ht 177.8 cm; Wt 87.5 kg
[~2019-01-14 06:12] MED LIST changes: +ASPI-1393 PO; +BUPR-102 PO; +BUTA1CAP45 PO; +CLON0.5T PO; -CLOP75TA15 PO; +FAMO20TA8 PO; +GABA-529 PO; +HYDR-4135 PO; +ONDA4TAB5 PO; +RISP1 PO; +TRAM50TA3 PO
[2019-01-14] MEDS ORDERED: SKIN ADHESIVE 0.7 GM EA TOP ONE (06:45)
[2019-01-14] MEDS ORDERED: BACITRACIN 15GM TUBE TOP ONE (06:45)
[2019-01-14] MEDS ORDERED: HEPARIN SODIUM 1,000 UNIT/1ML VIAL IV ONE (06:46)
[2019-01-14] MEDS ORDERED: THROMBIN (BOVINE) 5000 UNITS/VIAL TOP ONE (06:46)
[2019-01-14] MEDS ORDERED: LIDOCAINE HCL 1% 20ML VIAL (Pyxis) INJ ONE (06:46)
[2019-01-14] MEDS ORDERED: BACITRACIN 50,000 UNITS/VIAL ONE (06:47)
[2019-01-14] MEDS ORDERED: BUPIVACAINE HCL/PF 0.5% (5MG/ML) 10ML ONE (06:47)
[2019-01-14 07:17] LABS: EOSINOPHILS % 9.1 % (0.0-5.0); HEMATOCRIT. 34.3 % (42.0-52.0); HEMOGLOBIN. 11.2 g/dL (14.0-18.0); LYMPHOCYTES % 15.7 % (20.0-50.0); MEAN CORPUSCULAR HEMOGLOBIN 28.5 pg (28.0-32.0); MEAN CORPUSCULAR VOLUME 87.2 fL (80.0-94.0); MEAN PLATELET VOLUME 8.1 fl (7.4-10.4); NEUTROPHILS % 61.2 % (40.0-76.0); PLATELET 191 x1000/uL (130-400); RED BLOOD CELL COUNT 3.93 mill/uL (4.7-6.1); RED CELL DISTRIBUTION WIDTH 18.7 % (11.6-14.6)
[2019-01-14 07:22] LABS: PARTIAL THROMBOPLASTIN TIME 26.8 sec (23.4-31.0); PROTHROMBIN TIME 10.6 sec (9.6-11.0)
[2019-01-14] MEDS ORDERED: SODIUM CHLORIDE 0.9% 500 ML IV ONE (07:30)
[2019-01-14] MEDS ORDERED: AMOX-494 PO (07:51)
[2019-01-14] MEDS ORDERED: ONDANSETRON HCL 4MG/2ML INJ IV PRN (10:00)
[2019-01-14] MEDS ORDERED: HYDROMORPHONE HCL/PF 2MG/ML CPJ IV PRN (10:00)
[2019-01-14] MEDS ORDERED: MEPERIDINE HCL/PF 25MG/ML CPJ IV PRN (10:00)
[2019-01-14] MEDS ORDERED: LABETALOL 5MG/ML SYR 20 MG/4 ML SYRINGE IV PRN (10:00)
[2019-01-14] MEDS ORDERED: HYDRALAZINE 20MG/ML VIAL ONE (13:21)
[2019-01-14] MEDS ORDERED: HYDRALAZINE 20MG/ML VIAL IV SCH (13:30)
[2019-01-14] MEDS ORDERED: LABETALOL HCL 5MG/ML VIAL 20ML IV PRN (14:00)
[2019-01-14] MEDS ORDERED: HEPARIN SODIUM 1,000 UNIT/1ML VIAL IV NR (14:00)
[2019-01-14 14:04] VITALS: BP 168/100
== END 2019-01-14 14:35 | disposition home or self-care (01) ==
LOC: OR 06:12
PROVIDERS: ATTEND Surgery Vascular Surgery
DX: I13.2 Hypertensive heart and chronic kidney disease with heart failure and with stage 5 chronic kidney disease, or end stage renal disease (principal); I50.30 Unspecified diastolic (congestive) heart failure; N18.6 End stage renal disease; M62.81 Muscle weakness (generalized); F15.10 Other stimulant abuse, uncomplicated; F20.0 Paranoid schizophrenia; F41.9 Anxiety disorder, unspecified; F33.9 Major depressive disorder, recurrent, unspecified; R94.31 Abnormal electrocardiogram [ECG] [EKG]; F17.210 Nicotine dependence, cigarettes, uncomplicated; Z79.899 Other long term (current) drug therapy; Z82.49 Family history of ischemic heart disease and other diseases of the circulatory system; Z74.09 Other reduced mobility; Z99.2 Dependence on renal dialysis; Z98.890 Other specified postprocedural states
CPT/HCPCS: 36415; 36821; 80048; 85025; 85610; 85730; 93005; J0360; J1644; J2175; J3490

== ENCOUNTER 2019-01-14 18:55 | Emergency (ER) | payer MEDICARE, OTHER ==
[~2019-01-14] VITALS: Ht 182.9 cm; Wt 90.0 kg
[~2019-01-14 18:55] MED LIST changes: +AMOX-494 PO
[2019-01-14] MEDS ORDERED: LIDOCAINE HCL/PF 1% 10 MG/ML 5ML VIAL IJ ONE (20:00)
[2019-01-14] MEDS ORDERED: LIDOCAINE 1%/EPI 1:100,000 10 ML VIAL IJ ONE (20:00)
[2019-01-14 21:00] VITALS: BP 187/112
[2019-01-14] MEDS ORDERED: IBUPROFEN 600MG TABLET PO ONE (21:00)
== END 2019-01-14 23:03 | disposition home or self-care (01) ==
LOC: ER 18:55
DX: T82.838A Hemorrhage due to vascular prosthetic devices, implants and grafts, initial encounter (principal); X58.XXXA Exposure to other specified factors, initial encounter; I11.0 Hypertensive heart disease with heart failure; I13.2 Hypertensive heart and chronic kidney disease with heart failure and with stage 5 chronic kidney disease, or end stage renal disease; N18.6 End stage renal disease; Z99.2 Dependence on renal dialysis; Z79.82 Long term (current) use of aspirin; Z79.899 Other long term (current) drug therapy
CPT/HCPCS: 99283; J3490

== ENCOUNTER 2019-01-22 12:29 | Emergency (ER) | payer MEDICARE, OTHER | END 2019-01-22 12:44 | disposition left against medical advice (07) | LOC: ER 12:29 | DX: Z53.21 Procedure and treatment not carried out due to patient leaving prior to being seen by health care provider (principal) ==

== ENCOUNTER 2019-01-26 10:29 | Emergency (ER) | payer MEDICARE, OTHER ==
[~2019-01-26] VITALS: Ht 180.3 cm; Wt 99.0 kg
[2019-01-26 10:47] VITALS: BP 176/114
== END 2019-01-26 13:33 | disposition left against medical advice (07) ==
LOC: ER 10:29
DX: Z53.21 Procedure and treatment not carried out due to patient leaving prior to being seen by health care provider (principal); I13.2 Hypertensive heart and chronic kidney disease with heart failure and with stage 5 chronic kidney disease, or end stage renal disease; N18.6 End stage renal disease; I50.9 Heart failure, unspecified; Z99.2 Dependence on renal dialysis

== ENCOUNTER 2019-01-26 23:48 | Emergency (ER) | payer MEDICARE, OTHER ==
[~2019-01-26] VITALS: Ht 180.3 cm; Wt 92.4 kg
[2019-01-27] MEDS ORDERED: ONDANSETRON HCL 4MG/2ML INJ IV STA (04:04)
[2019-01-27] MEDS ORDERED: HYDROCODONE/ACETAMINOPHEN 5/325MG TABLET PO STA (04:04)
[2019-01-27] MEDS ORDERED: ASPIRIN 81MG TABLET PO ONE (04:15)
[2019-01-27 04:47] VITALS: BP 154/99
== END 2019-01-27 04:52 | disposition home or self-care (01) ==
LOC: ER 23:48 → CANBEDREQ 01-27 05:12
DX: K08.89 Other specified disorders of teeth and supporting structures (principal); I13.2 Hypertensive heart and chronic kidney disease with heart failure and with stage 5 chronic kidney disease, or end stage renal disease; N18.6 End stage renal disease; I50.9 Heart failure, unspecified; Z99.2 Dependence on renal dialysis; Z79.82 Long term (current) use of aspirin; Z87.891 Personal history of nicotine dependence; Z98.890 Other specified postprocedural states
CPT/HCPCS: 99283; J2405

== ENCOUNTER 2019-02-24 07:05 | Inpatient (IN) | payer MEDICARE, OTHER ==
[~2019-02-24] VITALS: Ht 180.3 cm; Wt 91.2 kg
[2019-02-24 10:07] LABS: BASOPHILS % 1.2 % (0.0-2.0); HEMATOCRIT. 37.7 % (42.0-52.0); HEMOGLOBIN. 12.2 g/dL (14.0-18.0); LYMPHOCYTES % 18.9 % (20.0-50.0); MEAN CORPUSCULAR HEMOGLOBIN 28.9 pg (28.0-32.0); MEAN CORPUSCULAR VOLUME 89.4 fL (80.0-94.0); MEAN PLATELET VOLUME 8.2 fl (7.4-10.4); MONOCYTES % 10.2 % (2.0-8.0); NEUTROPHILS % 62.7 % (40.0-76.0); PLATELET 178 x1000/uL (130-400); RED BLOOD CELL COUNT 4.21 mill/uL (4.7-6.1); RED CELL DISTRIBUTION WIDTH 17.8 % (11.6-14.6)
[2019-02-24 10:15] LABS: CHLORIDE 109 mEq/L (98-107)
[2019-02-24] MEDS ORDERED: SODIUM BICARBONATE 4% (2.4MEQ) 5ML VIAL IV ONE ×2 (12:51→13:24)
[2019-02-24] MEDS ORDERED: LIDOCAINE HCL 1% 20ML VIAL (Pyxis) INJ ONE ×2 (12:51→13:24)
[2019-02-24] MEDS ORDERED: HYDRALAZINE 20MG/ML VIAL IV ONE (13:00)
[2019-02-24] MEDS ORDERED: CLONIDINE 0.3MG TABLET PO SCH (15:15)
[2019-02-24] MEDS ORDERED: HYDRALAZINE 20MG/ML VIAL IV SCH (15:15)
[2019-02-24] MEDS ORDERED: CLONIDINE 0.3MG TABLET PO NR (18:00)
[2019-02-24] MEDS ORDERED: HYDRALAZINE 20MG/ML VIAL IV PRN (19:00)
[2019-02-24] MEDS ORDERED: CLONIDINE 0.1MG TABLET PO PRN (19:00)
[2019-02-24] MEDS ORDERED: MAGNESIUM/ALUMINUM HYDROXIDE/SIMETHICONE 30ML UDC PO PRN (19:00)
[2019-02-24] MEDS ORDERED: GUAIFENESIN 200MG/10ML SUGAR FREE UDC PO PRN (19:00)
[2019-02-24] MEDS ORDERED: DIPHENHYDRAMINE 50MG/ML VIAL IV PRN (19:00)
[2019-02-24] MEDS ORDERED: ONDANSETRON HCL 4MG/2ML INJ IV PRN (19:00)
[2019-02-24] MEDS ORDERED: ACETAMINOPHEN 325MG TABLET PO PRN (19:00)
[2019-02-24 21:37] VITALS: BP 179/30
[2019-02-24 21:41] VITALS: BP 179/30
[2019-02-24 22:00] VITALS: BP 178/121
[2019-02-24] MEDS ORDERED: CLONIDINE 0.3MG TABLET PO PRN (22:47)
[2019-02-24 23:35] VITALS: BP 173/120
[2019-02-24] MEDS: CARVEDILOL 12.5MG TABLET PO SCH (23:38)
[2019-02-24] MEDS: CLONIDINE 0.3MG TABLET PO SCH (23:44)
[2019-02-25] VITALS (16 sets, daily range): BP systolic 105–181; BP diastolic 29–119
[2019-02-25] MEDS: CLONIDINE 0.3MG TABLET PO SCH ×3 (02:00→17:24)
[2019-02-25] MEDS ORDERED: HEPARIN SODIUM 1,000 UNIT/1ML VIAL IV NR (04:30)
[2019-02-25] MEDS: SODIUM CHLORIDE 0.9% INJ 3ML FLUSH IVF SCH ×3 (07:02→21:51)
[2019-02-25] MEDS: SEVELAMER CARBONATE 800 MG TABLET PO SCH ×3 (08:33→17:19)
[2019-02-25] MEDS: CARVEDILOL 12.5MG TABLET PO SCH ×2 (08:34→21:51)
[2019-02-25] MEDS: FOLIC ACID/VITAMIN B COMP W-C TABLET PO SCH (08:34)
[2019-02-25] MEDS: AMLODIPINE 10MG TABLET PO SCH (08:34)
[2019-02-25] MEDS: LISINOPRIL 40MG TABLET PO SCH (08:34)
[2019-02-26] VITALS (15 sets, daily range): BP systolic 101–153; BP diastolic 67–102
[2019-02-26] MEDS: CLONIDINE 0.3MG TABLET PO SCH ×3 (06:07→23:46)
[2019-02-26] MEDS: SODIUM CHLORIDE 0.9% INJ 3ML FLUSH IVF SCH ×3 (06:07→22:00)
[2019-02-26 06:44] LABS: BASOPHILS % 1.2 % (0.0-2.0); EOSINOPHILS % 7.7 % (0.0-5.0); HEMATOCRIT. 36.4 % (42.0-52.0); HEMOGLOBIN. 11.7 g/dL (14.0-18.0); LYMPHOCYTES % 23.3 % (20.0-50.0); MEAN CORPUSCULAR HEMOGLOBIN 28.9 pg (28.0-32.0); MEAN CORPUSCULAR VOLUME 89.8 fL (80.0-94.0); MEAN PLATELET VOLUME 8.3 fl (7.4-10.4); MONOCYTES % 13.6 % (2.0-8.0); NEUTROPHILS % 54.2 % (40.0-76.0); PLATELET 160 x1000/uL (130-400); RED BLOOD CELL COUNT 4.05 mill/uL (4.7-6.1); RED CELL DISTRIBUTION WIDTH 17.9 % (11.6-14.6)
[2019-02-26] MEDS: SEVELAMER CARBONATE 800 MG TABLET PO SCH ×3 (08:41→17:31)
[2019-02-26] MEDS: FOLIC ACID/VITAMIN B COMP W-C TABLET PO SCH (08:41)
[2019-02-26] MEDS: LISINOPRIL 40MG TABLET PO SCH (08:42)
[2019-02-26] MEDS: CARVEDILOL 12.5MG TABLET PO SCH ×2 (08:42→23:46)
[2019-02-26] MEDS: AMLODIPINE 10MG TABLET PO SCH (08:42)
[2019-02-26] MEDS ORDERED: HEPARIN SODIUM 1,000 UNIT/1ML VIAL IV NR (21:30)
[2019-02-27] VITALS: BP 150/88
== END 2019-02-27 01:25 | DRG 640 ==
LOC: ER 07:05 → 3WST 10:35 → EDBEDREQ 10:42 → ENRESERV 12:54 → CANRESERV 12:54 → EDBEDREQSVC 18:11 → ENRESERV 20:58
PROVIDERS: ADMIT Internal Medicine; ATTEND Internal Medicine
PROC: 5A1D70Z Performance of Urinary Filtration, Intermittent, Less than 6 Hours Per Day (ICD-10-PCS; 2019-02-24)
PROC: 5A1D70Z Performance of Urinary Filtration, Intermittent, Less than 6 Hours Per Day (ICD-10-PCS; principal; 2019-02-26)
DX: E87.5 Hyperkalemia (principal); N18.6 End stage renal disease; I13.2 Hypertensive heart and chronic kidney disease with heart failure and with stage 5 chronic kidney disease, or end stage renal disease; I50.32 Chronic diastolic (congestive) heart failure; F15.10 Other stimulant abuse, uncomplicated; D64.9 Anemia, unspecified; Z59.0 Homelessness; Z82.49 Family history of ischemic heart disease and other diseases of the circulatory system; Z99.2 Dependence on renal dialysis; Z79.82 Long term (current) use of aspirin; Z79.899 Other long term (current) drug therapy; Z91.15 Patient's noncompliance with renal dialysis
CPT/HCPCS: 36415; 71045; 80048; 82962; 84484; 93005; 96374; 97161; 99291; J0360; J1200; J1644; J3490

== ENCOUNTER 2019-03-09 16:44 | Emergency (ER) | payer MEDICARE, OTHER ==
[~2019-03-09] VITALS: Ht 175.3 cm; Wt 91.0 kg
[~2019-03-09 16:44] MED LIST changes: -AMOX-494 PO
[2019-03-09] MEDS ORDERED: VISCOUS LIDOCAINE 2% 15 ML UDC PO ONE (17:15)
[2019-03-09] MEDS ORDERED: MAGNESIUM/ALUMINUM HYDROXIDE/SIMETHICONE 30ML UDC PO ONE (17:15)
[2019-03-09] MEDS ORDERED: ASPIRIN 81MG TABLET PO ONE (17:15)
[2019-03-09 17:25] LABS: BASOPHILS % 0.6 % (0.0-2.0); EOSINOPHILS % 5.5 % (0.0-5.0); HEMATOCRIT. 34.4 % (42.0-52.0); HEMOGLOBIN. 11.1 g/dL (14.0-18.0); LYMPHOCYTES % 9.7 % (20.0-50.0); MEAN CORPUSCULAR HEMOGLOBIN 28.7 pg (28.0-32.0); MEAN CORPUSCULAR VOLUME 89.2 fL (80.0-94.0); MEAN PLATELET VOLUME 8.8 fl (7.4-10.4); MONOCYTES % 14.6 % (2.0-8.0); NEUTROPHILS % 69.6 % (40.0-76.0); PLATELET 195 x1000/uL (130-400); RED BLOOD CELL COUNT 3.85 mill/uL (4.7-6.1); RED CELL DISTRIBUTION WIDTH 17.3 % (11.6-14.6)
[2019-03-09 17:31] LABS: CHLORIDE 99 mEq/L (98-107)
[2019-03-09] MEDS ORDERED: HYDROCODONE/ACETAMINOPHEN 5/325MG TABLET PO ONE (18:00)
[2019-03-09 21:29] VITALS: BP 161/108
== END 2019-03-09 21:29 | disposition home or self-care (01) ==
LOC: ER 16:44
DX: R07.9 Chest pain, unspecified (principal); I13.2 Hypertensive heart and chronic kidney disease with heart failure and with stage 5 chronic kidney disease, or end stage renal disease; N18.6 End stage renal disease; I50.9 Heart failure, unspecified; Z99.2 Dependence on renal dialysis; Z79.82 Long term (current) use of aspirin
CPT/HCPCS: 36415; 71045; 83880; 84484; 93005; 99284

== ENCOUNTER 2019-04-14 09:45 | Day surgery (SDC) | payer MEDICARE, OTHER ==
[~2019-04-14] VITALS: Ht 177.8 cm; Wt 97.2 kg
[2019-04-14 10:58] LABS: BASOPHILS % 1.3 % (0.0-2.0); EOSINOPHILS % 7.5 % (0.0-5.0); HEMATOCRIT. 39.4 % (42.0-52.0); HEMOGLOBIN. 12.8 g/dL (14.0-18.0); LYMPHOCYTES % 17.2 % (20.0-50.0); MEAN CORPUSCULAR HEMOGLOBIN 28.9 pg (28.0-32.0); MEAN CORPUSCULAR VOLUME 88.9 fL (80.0-94.0); MEAN PLATELET VOLUME 7.6 fl (7.4-10.4); MONOCYTES % 12.9 % (2.0-8.0); NEUTROPHILS % 61.1 % (40.0-76.0); PLATELET 159 x1000/uL (130-400); RED BLOOD CELL COUNT 4.44 mill/uL (4.7-6.1); RED CELL DISTRIBUTION WIDTH 16.5 % (11.6-14.6)
[2019-04-14] MEDS ORDERED: HEPARIN SODIUM 1,000 UNIT/1ML VIAL IV ONE ×2 (11:05→15:30)
[2019-04-14] MEDS ORDERED: BACITRACIN 15GM TUBE TOP ONE (11:05)
[2019-04-14] MEDS ORDERED: BUPIVACAINE HCL/PF 0.5% (5MG/ML) 10ML ONE (11:05)
[2019-04-14] MEDS ORDERED: NORMAL SALINE 0.9% 10 ML SYR ONE (11:05)
[2019-04-14] MEDS ORDERED: LIDOCAINE HCL 1% 20ML VIAL (Pyxis) INJ ONE (11:05)
[2019-04-14] MEDS ORDERED: THROMBIN (BOVINE) 5000 UNITS/VIAL TOP ONE (11:05)
[2019-04-14] MEDS ORDERED: BACITRACIN 50,000 UNITS/VIAL ONE (11:06)
[2019-04-14 11:16] LABS: INR 1.1; PARTIAL THROMBOPLASTIN TIME 26.7 sec (23.4-31.0); PROTHROMBIN TIME 10.8 sec (9.6-11.0)
[2019-04-14 11:44] LABS: *AMPHETAMINES SCREEN URINE PRESUMTIVE POSITIVE (NEGATIVE); *BARBITURATES SCREEN URINE NEGATIVE (NEGATIVE); *BENZODIAZEPINES SCREEN URINE NEGATIVE (NEGATIVE); *COCAINE SCREEN URINE NEGATIVE (NEGATIVE); METHADONE URINE SCREEN NEGATIVE (NEGATIVE)
[2019-04-14 11:45] LABS: CANNABINOID URINE SCREEN NEGATIVE (NEGATIVE); OPIATES URINE SCREEN NEGATIVE (NEGATIVE); PHENCYCLIDINE URINE SCREEN NEGATIVE (NEGATIVE)
[2019-04-14] MEDS ORDERED: SODIUM CHLORIDE 0.9% 500 ML IV ONE (11:45)
[2019-04-14] MEDS ORDERED: FENTANYL CITRATE/PF 50MCG/ML 2ML VIAL ONE (12:31)
[2019-04-14] MEDS ORDERED: PROPOFOL 200MG/20ML VIAL IV ONE (12:31)
[2019-04-14] MEDS ORDERED: LIDOCAINE HCL/PF 1% 10 MG/ML 5ML VIAL ONE (12:33)
[2019-04-14] MEDS ORDERED: EPHEDRINE SULFATE 50MG/ML VIAL ONE (12:36)
[2019-04-14] MEDS ORDERED: PHENYLEPHRINE HCL 10 MG/ML 1ML (IV VIAL) IV ONE (12:38)
[2019-04-14] MEDS ORDERED: SODIUM CHLORIDE 0.9% 10ML VIAL ONE ×2 (12:38→14:12)
[2019-04-14] MEDS ORDERED: ONDANSETRON HCL 4MG/2ML INJ ONE (13:41)
[2019-04-14] MEDS ORDERED: DEXAMETHASONE 4MG/ML 1ML VIAL ONE (14:09)
[2019-04-14] MEDS ORDERED: HYDRALAZINE 20MG/ML VIAL ONE (14:12)
[2019-04-14] MEDS: HYDROMORPHONE HCL/PF 2MG/ML CPJ IV PRN ×2 (14:45→14:57)
[2019-04-14 14:57] VITALS: BP 133/85
[2019-04-14] MEDS ORDERED: MAG30ORA PO (15:55)
== END 2019-04-14 17:30 | disposition home or self-care (01) ==
LOC: OR 09:45
PROVIDERS: ATTEND Surgery Vascular Surgery
DX: I13.2 Hypertensive heart and chronic kidney disease with heart failure and with stage 5 chronic kidney disease, or end stage renal disease (principal); I50.32 Chronic diastolic (congestive) heart failure; N18.6 End stage renal disease; E78.5 Hyperlipidemia, unspecified; F15.10 Other stimulant abuse, uncomplicated; F20.0 Paranoid schizophrenia; F32.9 Major depressive disorder, single episode, unspecified; Z59.0 Homelessness; Z91.15 Patient's noncompliance with renal dialysis; Z79.899 Other long term (current) drug therapy; Z79.82 Long term (current) use of aspirin; Z87.891 Personal history of nicotine dependence; Z83.3 Family history of diabetes mellitus
CPT/HCPCS: 36415; 36830; 80048; 80305; 85025; 85610; 85730; 93005; C1768; C1884; J0360; J1100; J1170; J1644; J2370; J2405; J2704; J3010; J3490; J7040; A4565

== ENCOUNTER 2019-05-02 06:24 | Inpatient (IN) | payer MEDICARE, OTHER ==
[~2019-05-02] VITALS: Ht 180.3 cm; Wt 91.2 kg
[~2019-05-02 06:24] MED LIST changes: +MAG30ORA PO
[2019-05-02] MEDS ORDERED: ASPIRIN 81MG TABLET PO ONE (09:30)
[2019-05-02 09:54] LABS: HEMATOCRIT. 39.3 % (42.0-52.0); HEMOGLOBIN. 12.6 g/dL (14.0-18.0); MEAN CORPUSCULAR HEMOGLOBIN 28.5 pg (28.0-32.0); MEAN PLATELET VOLUME 8.6 fl (7.4-10.4); PLATELET 184 x1000/uL (130-400); RED BLOOD CELL COUNT 4.42 mill/uL (4.7-6.1); RED CELL DISTRIBUTION WIDTH 16.4 % (11.6-14.6)
[2019-05-02 09:59] LABS: CHLORIDE 105 mEq/L (98-107)
[2019-05-02] MEDS ORDERED: CALCIUM CHLORIDE 1GM/10ML SYR IV ONE (10:30)
[2019-05-02] MEDS ORDERED: ALBUTEROL (0.083%) 2.5MG/3ML NEB HHN ONE (10:30)
[2019-05-02] MEDS ORDERED: INSULIN REGULAR (HUMULIN R) 300UNITS/3ML IV ONE (10:30)
[2019-05-02] MEDS ORDERED: SODIUM BICARBONATE 8.4% 1 MEQ/ML 50ML SYR IV ONE (10:30)
[2019-05-02] MEDS ORDERED: DEXTROSE 50% WATER 50ML SYRINGE IV ONE (10:30)
[2019-05-02 10:39] LABS: PLATELET ESTIMATE NORMAL
[2019-05-02] MEDS ORDERED: ACETAMINOPHEN 325MG TABLET PO PRN (12:30)
[2019-05-02] MEDS ORDERED: DOCUSATE SODIUM 100MG CAPSULE PO PRN (12:30)
[2019-05-02] MEDS ORDERED: TRAMADOL 50MG TABLET PO PRN (12:30)
[2019-05-02] MEDS ORDERED: ONDANSETRON HCL 4MG/2ML INJ IV PRN (12:30)
[2019-05-02] MEDS ORDERED: NITROGLYCERIN 0.4MG TABLET SL SL PRN (12:30)
[2019-05-02] MEDS ORDERED: ZOLPIDEM TARTRATE 5MG TABLET PO PRN (12:30)
[2019-05-02] MEDS ORDERED: CLONIDINE 0.1MG TABLET PO PRN (12:30)
[2019-05-02] MEDS ORDERED: GUAIFENESIN 200MG/10ML SUGAR FREE UDC PO PRN (12:30)
[2019-05-02] MEDS ORDERED: IPRATROPIUM/ALBUTEROL 0.5-3(2.5)MG/3ML NEB NEB PRN (12:30)
[2019-05-02] MEDS ORDERED: HALOPERIDOL LACTATE 5MG/ML VIAL IM PRN (12:30)
[2019-05-02] MEDS ORDERED: LORAZEPAM 0.5MG TABLET PO PRN (12:30)
[2019-05-02] MEDS ORDERED: MAGNESIUM/ALUMINUM HYDROXIDE/SIMETHICONE 30ML UDC PO PRN (12:30)
[2019-05-02] MEDS ORDERED: SEVELAMER CARBONATE 800 MG TABLET PO NR (15:00)
[2019-05-02] MEDS ORDERED: HYDRALAZINE HCL 50MG TABLET PO SCH (15:00)
[2019-05-02 15:46] LABS: CREATINE KINASE MB FRACTION 11.2 ng/mL (0.5-3.6)
[2019-05-02] MEDS: CARVEDILOL 12.5MG TABLET PO SCH (20:36)
[2019-05-02 21:00] VITALS: BP 149/103
[2019-05-02] MEDS: FAMOTIDINE 20MG TABLET PO SCH (21:00)
[2019-05-02] MEDS: HYDRALAZINE HCL 50MG TABLET PO SCH (21:36)
[2019-05-03 01:17] LABS: CREATINE KINASE MB FRACTION 9.5 ng/mL (0.5-3.6)
[2019-05-03 04:00] VITALS: BP 148/99
[2019-05-03] MEDS: HYDRALAZINE HCL 50MG TABLET PO SCH ×3 (05:47→21:42)
[2019-05-03] MEDS: CARVEDILOL 12.5MG TABLET PO SCH ×2 (05:56→18:02)
[2019-05-03 08:00] VITALS: BP 121/67
[2019-05-03] MEDS: ENOXAPARIN 40MG/0.4ML SYR SUBCUT SCH ×2 (09:00→09:17)
[2019-05-03] MEDS: SEVELAMER CARBONATE 800 MG TABLET PO SCH ×4 (09:16→18:02)
[2019-05-03] MEDS: ASPIRIN 325MG EC TABLET PO SCH (09:16)
[2019-05-03] MEDS: FOLIC ACID/VITAMIN B COMP W-C TABLET PO SCH (09:16)
[2019-05-03] MEDS: FAMOTIDINE 20MG TABLET PO SCH (09:16)
[2019-05-03] MEDS: AMLODIPINE 10MG TABLET PO SCH (09:17)
[2019-05-03 12:00] VITALS: BP 128/86
[2019-05-03 12:03] LABS: HEMATOCRIT. 38.5 % (42.0-52.0); HEMOGLOBIN. 12.4 g/dL (14.0-18.0); MEAN CORPUSCULAR HEMOGLOBIN 28.2 pg (28.0-32.0); MEAN CORPUSCULAR VOLUME 87.6 fL (80.0-94.0); MEAN PLATELET VOLUME 9.4 fl (7.4-10.4); PLATELET 223 x1000/uL (130-400); RED BLOOD CELL COUNT 4.39 mill/uL (4.7-6.1); RED CELL DISTRIBUTION WIDTH 16.6 % (11.6-14.6)
[2019-05-03 14:53] LABS: PLATELET ESTIMATE NORMAL
[2019-05-03 16:00] VITALS: BP 132/87
[2019-05-03] MEDS ORDERED: SODIUM POLYSTYRENE SULFONATE 15 G/60 ML BOT PO NR (19:15)
[2019-05-03 20:00] VITALS: BP 125/68
[2019-05-04] VITALS: BP 158/108
[2019-05-04 04:00] VITALS: BP_SYST 161; BP_SYST 169; BP_DIAS 64; BP_DIAS 67
[2019-05-04] MEDS: CARVEDILOL 12.5MG TABLET PO SCH (06:29)
[2019-05-04] MEDS: HYDRALAZINE HCL 50MG TABLET PO SCH ×2 (06:30→13:51)
[2019-05-04 08:20] VITALS: BP 134/80
[2019-05-04] MEDS: AMLODIPINE 10MG TABLET PO SCH (09:00)
[2019-05-04] MEDS: FAMOTIDINE 20MG TABLET PO SCH (09:18)
[2019-05-04] MEDS: SEVELAMER CARBONATE 800 MG TABLET PO SCH ×2 (09:18→13:04)
[2019-05-04] MEDS: ASPIRIN 325MG EC TABLET PO SCH (09:18)
[2019-05-04] MEDS: FOLIC ACID/VITAMIN B COMP W-C TABLET PO SCH (09:19)
[2019-05-04] MEDS: ENOXAPARIN 40MG/0.4ML SYR SUBCUT SCH (09:19)
[2019-05-04 11:34] VITALS: BP 156/94
[2019-05-04] MEDS ORDERED: HEPARIN SODIUM 1,000 UNIT/1ML VIAL IV NR (11:45)
== END 2019-05-04 15:38 | disposition left against medical advice (07) | DRG 640 ==
LOC: ER 06:24 → 6WST 11:31 → EDBEDREQ 11:34 → SUPCPDRO 12:26 → ENRESERV 16:42 → 6WST 20:33
PROVIDERS: ADMIT Internal Medicine; ATTEND Internal Medicine
PROC: 5A1D70Z Performance of Urinary Filtration, Intermittent, Less than 6 Hours Per Day (ICD-10-PCS; principal; 2019-05-02)
PROC: 5A1D70Z Performance of Urinary Filtration, Intermittent, Less than 6 Hours Per Day (ICD-10-PCS; 2019-05-04)
DX: E87.5 Hyperkalemia (principal); N18.6 End stage renal disease; I13.2 Hypertensive heart and chronic kidney disease with heart failure and with stage 5 chronic kidney disease, or end stage renal disease; Z53.29 Procedure and treatment not carried out because of patient's decision for other reasons; E87.2 Acidosis; E87.1 Hypo-osmolality and hyponatremia; I50.9 Heart failure, unspecified; F17.210 Nicotine dependence, cigarettes, uncomplicated; D63.8 Anemia in other chronic diseases classified elsewhere; R07.89 Other chest pain; Z99.2 Dependence on renal dialysis; Z91.15 Patient's noncompliance with renal dialysis
CPT/HCPCS: 36415; 71045; 80048; 80053; 80061; 82550; 82553; 82962; 83036; 83880; 84484; 85025; 93005; 93970; 94640; 96374; 99285; J1644; J1650; J1815; J3490; J7611

== ENCOUNTER 2019-07-06 17:27 | Inpatient (IN) | payer MEDICARE, OTHER ==
[~2019-07-06] VITALS: Ht 180.3 cm; Wt 99.8 kg
[~2019-07-06 17:27] MED LIST changes: -ASPI-1393 PO; +ASPI-1497 PO
[2019-07-06 23:44] LABS: BASOPHILS % 1.1 % (0.0-2.0); EOSINOPHILS % 4.5 % (0.0-5.0); HEMATOCRIT. 26.8 % (42.0-52.0); HEMOGLOBIN. 8.9 g/dL (14.0-18.0); LYMPHOCYTES % 14.7 % (20.0-50.0); MEAN CORPUSCULAR HEMOGLOBIN 28.7 pg (28.0-32.0); MEAN CORPUSCULAR VOLUME 86.7 fL (80.0-94.0); MEAN PLATELET VOLUME 9.1 fl (7.4-10.4); MONOCYTES % 10.1 % (2.0-8.0); NEUTROPHILS % 69.6 % (40.0-76.0); PLATELET 152 x1000/uL (130-400); RED BLOOD CELL COUNT 3.09 mill/uL (4.7-6.1); RED CELL DISTRIBUTION WIDTH 16.9 % (11.6-14.6)
[2019-07-06 23:52] LABS: CHLORIDE 109 mEq/L (98-107)
[2019-07-07] MEDS ORDERED: MORPHINE SULFATE 2 MG/ML CPJ (NOT FOR IM USE) IV PRN (02:15)
[2019-07-07] MEDS ORDERED: ONDANSETRON HCL 4MG/2ML INJ IV PRN (02:15)
[2019-07-07] MEDS ORDERED: CLONIDINE 0.1MG TABLET PO PRN (02:15)
[2019-07-07] MEDS ORDERED: ACETAMINOPHEN 325MG TABLET PO PRN (02:15)
[2019-07-07] MEDS ORDERED: DOCUSATE SODIUM 100MG CAPSULE PO PRN (02:15)
[2019-07-07] MEDS ORDERED: MAGNESIUM/ALUMINUM HYDROXIDE/SIMETHICONE 30ML UDC PO PRN (02:15)
[2019-07-07] MEDS ORDERED: GUAIFENESIN 200MG/10ML SUGAR FREE UDC PO PRN (02:15)
[2019-07-07] MEDS ORDERED: DIPHENHYDRAMINE 50MG/ML VIAL IV PRN (02:15)
[2019-07-07] MEDS: IPRATROPIUM/ALBUTEROL 0.5-3(2.5)MG/3ML NEB NEB PRN ×2 (03:20→06:07)
[2019-07-07 08:30] VITALS: BP 158/103
[2019-07-07] MEDS ORDERED: AMLODIPINE 10MG TABLET PO SCH (09:00)
[2019-07-07 10:00] VITALS: BP 158/103
[2019-07-07] MEDS ORDERED: CLONAZEPAM 0.5MG TABLET PO PRN (11:30)
[2019-07-07] MEDS ORDERED: FAMOTIDINE 20MG TABLET PO SCH (13:00)
[2019-07-07] MEDS ORDERED: BUPROPION HCL 150MG TABLET XL 24HR PO SCH (13:00)
[2019-07-07] MEDS ORDERED: ASPIRIN 81MG EC TABLET PO SCH (13:00)
[2019-07-07] MEDS: CLONIDINE 0.3MG TABLET PO SCH ×2 (14:00→21:23)
[2019-07-07] MEDS: HYDRALAZINE HCL 50MG TABLET PO SCH ×2 (14:00→21:24)
[2019-07-07] MEDS ORDERED: LIDOCAINE HCL/EPINEPHRINE 1%-EPI 1:100,000 20 ML VIAL INFIL SCH (14:00)
[2019-07-07 16:00] VITALS: BP 183/114
[2019-07-07] MEDS: GABAPENTIN 100MG CAPSULE PO SCH ×2 (16:16→21:22)
[2019-07-07] MEDS: SEVELAMER CARBONATE 800 MG TABLET PO SCH ×2 (16:16→17:50)
[2019-07-07 20:00] VITALS: BP 153/101
[2019-07-07] MEDS ORDERED: RISPERIDONE 1MG TABLET PO SCH (21:00)
[2019-07-08] MEDS ORDERED: LISINOPRIL 40MG TABLET PO SCH (09:00)
== END 2019-07-07 22:30 | disposition left against medical advice (07) | DRG 291 ==
LOC: ER 17:27 → 6WST 07-07 01:35 → ENRESERV 07-07 07:42
PROVIDERS: ADMIT Hospitalist; ATTEND Hospitalist
DX: I13.2 Hypertensive heart and chronic kidney disease with heart failure and with stage 5 chronic kidney disease, or end stage renal disease (principal); N18.6 End stage renal disease; I50.33 Acute on chronic diastolic (congestive) heart failure; E44.0 Moderate protein-calorie malnutrition; D63.1 Anemia in chronic kidney disease; F15.10 Other stimulant abuse, uncomplicated; Z91.19 Patient's noncompliance with other medical treatment and regimen; F17.210 Nicotine dependence, cigarettes, uncomplicated; Z99.2 Dependence on renal dialysis; Z79.899 Other long term (current) drug therapy; Z53.29 Procedure and treatment not carried out because of patient's decision for other reasons; Z68.30 Body mass index [BMI] 30.0-30.9, adult
CPT/HCPCS: 36415; 71045; 80053; 83880; 84484; 85025; 93005; J3490

== ENCOUNTER 2019-11-26 17:10 | Inpatient (IN) | payer MEDICARE, OTHER, MEDICAID ==
[2019-11-26] VITALS (12 sets, daily range): BP systolic 130–197; BP diastolic 63–124
[~2019-11-26] VITALS: Ht 180.3 cm; Wt 73.5 kg
[~2019-11-26 17:10] MED LIST changes: -HYDR-4135 PO; +HYDR100T26 MT; +WARF10TA44 MT
[2019-11-26] MEDS ORDERED: ONDANSETRON HCL 4MG/2ML INJ IV ONE (17:30)
[2019-11-26] MEDS ORDERED: DILTIAZEM HCL 5MG/ML 5ML VIAL IV ONE ×2 (17:30→18:30)
[2019-11-26 18:24] LABS: BASOPHILS % 1.3 % (0.0-2.0); EOSINOPHILS % 1.7 % (0.0-5.0); HEMATOCRIT. 21.1 % (42.0-52.0); LYMPHOCYTES % 11.5 % (20.0-50.0); MEAN CORPUSCULAR HEMOGLOBIN 26.1 pg (28.0-32.0); MEAN CORPUSCULAR VOLUME 84.9 fL (80.0-94.0); MEAN PLATELET VOLUME 8.3 fl (7.4-10.4); MONOCYTES % 10.5 % (2.0-8.0); PLATELET 160 x1000/uL (130-400); RED BLOOD CELL COUNT 2.48 mill/uL (4.7-6.1)
[2019-11-26 18:25] LABS: BG BASE EXCESS -8.1 mmol/L (-2.0-2.0); BG CARBOXYHEMOGLOBIN 0.3 % (0.5-1.5); BG DEOXYHEMOGLOBIN 3.1 % (0.0-5.0); BG FRACTION INSPIRED OXYGEN 100; BG HCO3 ACT 17.5 mmol/L (22.0-26.0); BG METHEMOGLOBIN 0.2 % (0.0-1.5); BG OXYGEN SATURATION 96.9 % (92.0-98.5); BG OXYHEMOGLOBIN 96.4 % (94.0-97.0); BG PH 7.304 (7.350-7.450); BG PO2 107.8 mmHg (75.0-100.0); BG SAMPLE SITE RIGHT RADIAL; BG TOTAL HEMOGLOBIN 10.3 g/dL (12.0-18.0); BG VENT MODE MASK - NRB
[2019-11-26 18:30] LABS: CHLORIDE 122 mEq/L (98-107)
[2019-11-26] MEDS ORDERED: DILTIAZEM HCL 125 MG in DEXT 5% WATER 100 ML IV ONE (18:30)
[2019-11-26 18:31] LABS: HEMOGLOBIN. 6.5 g/dL (14.0-18.0)
[2019-11-26 18:35] LABS: ETHANOL BLOOD < 10 mg/dL
[2019-11-26] MEDS ORDERED: AZITHROMYCIN 500 MG in DEXT 5% WATER 250 ML IV STA (18:38)
[2019-11-26 18:39] LABS: CREATINE KINASE 608 IU/L (39-308); T4 FREE 1.04 ng/dL (0.76-1.46)
[2019-11-26] MEDS ORDERED: CEFTRIAXONE 1 G PREMIX 50 ML IV ONE (18:45)
[2019-11-26] MEDS ORDERED: DILTIAZEM HCL 125 MG in DEXT 5% WATER 100 ML IV SCH ×2 (18:45→20:45)
[2019-11-26 19:29] LABS: D-DIMER 0.93 mg/L FEU (<0.50); INR 1.4; PROTHROMBIN TIME 14.9 sec (9.6-11.0)
[2019-11-26] MEDS ORDERED: SODIUM BICARBONATE 8.4% 1 MEQ/ML 50ML SYR IV ONE ×2 (19:30→20:00)
[2019-11-26 20:00] LABS: PLATELET ESTIMATE NORMAL
[2019-11-26] MEDS ORDERED: AZITHROMYCIN 500 MG in DEXT 5% WATER 250 ML IV SCH (20:00)
[2019-11-26] MEDS ORDERED: NITROGLYCERIN 0.4MG TABLET SL SL PRN (20:45)
[2019-11-26] MEDS ORDERED: IPRATROPIUM/ALBUTEROL 0.5-3(2.5)MG/3ML NEB ORI PRN (20:45)
[2019-11-26] MEDS ORDERED: LORAZEPAM 0.5MG TABLET PO PRN (20:45)
[2019-11-26] MEDS ORDERED: GUAIFENESIN 200MG/10ML SUGAR FREE UDC PO PRN (20:45)
[2019-11-26] MEDS ORDERED: DIPHENHYDRAMINE 50MG/ML VIAL IV PRN (20:45)
[2019-11-26] MEDS ORDERED: MAGNESIUM/ALUMINUM HYDROXIDE/SIMETHICONE 30ML UDC PO PRN (20:45)
[2019-11-26] MEDS ORDERED: ONDANSETRON HCL 4MG/2ML INJ IV PRN (20:45)
[2019-11-26] MEDS ORDERED: ACETAMINOPHEN 325MG TABLET PO PRN ×2 (20:45)
[2019-11-26] MEDS ORDERED: DOCUSATE SODIUM 100MG CAPSULE PO PRN (20:45)
[2019-11-26] MEDS ORDERED: POTASSIUM CHLORIDE 20MEQ TABLET SR PO NR (21:00)
[2019-11-26] MEDS ORDERED: PIPERACILLIN/TAZ 3.375G PREMIX 50 ML IV SCH (21:15)
[2019-11-26] MEDS ORDERED: VANCOMYCIN 1250MG in DEXTROSE 5% WATER 250ML IV SCH (21:30)
[2019-11-26] MEDS ORDERED: MAGNESIUM 2 G PREMIX 50 ML IV SCH (23:00)
[2019-11-26] MEDS: CARVEDILOL 12.5MG TABLET PO SCH (23:43)
[2019-11-26] MEDS: ASCORBIC ACID 500 MG TABLET PO SCH (23:44)
[2019-11-26] MEDS: FAMOTIDINE 20MG TABLET PO SCH (23:44)
[2019-11-26 23:46] LABS: CREATINE KINASE MB FRACTION 7.6 ng/mL (0.5-3.6); T4 FREE 0.95 ng/dL (0.76-1.46)
[2019-11-26] MEDS: PIPERACILLIN/TAZOBACTAM 2.25 G in DEXTROSE 5% WATER 50 ML IV SCH (23:53)
[2019-11-26 23:57] LABS: FOLIC ACID (FOLATE) SERUM 12.6 ng/mL (>5.38)
[2019-11-27] VITALS (76 sets, daily range): BP systolic 115–224; BP diastolic 57–151
[2019-11-27] MEDS: SEVELAMER CARBONATE 800 MG TABLET PO SCH ×3 (07:35→17:00)
[2019-11-27] MEDS: ZINC SULFATE 220 MG ( 50 ) CAPSULE PO SCH (08:06)
[2019-11-27] MEDS: ASPIRIN 325MG EC TABLET PO SCH (08:06)
[2019-11-27] MEDS: FAMOTIDINE 20MG TABLET PO SCH (08:06)
[2019-11-27] MEDS: ASCORBIC ACID 500 MG TABLET PO SCH ×2 (08:07→21:31)
[2019-11-27] MEDS: CARVEDILOL 12.5MG TABLET PO SCH ×2 (08:07→21:31)
[2019-11-27 09:15] LABS: BASOPHILS % 1.1 % (0.0-2.0); HEMATOCRIT. 30.6 % (42.0-52.0); HEMOGLOBIN. 9.8 g/dL (14.0-18.0); LYMPHOCYTES % 14.2 % (20.0-50.0); MEAN CORPUSCULAR HEMOGLOBIN 26.7 pg (28.0-32.0); MEAN CORPUSCULAR VOLUME 83.7 fL (80.0-94.0); MEAN PLATELET VOLUME 9.3 fl (7.4-10.4); MONOCYTES % 12.5 % (2.0-8.0); NEUTROPHILS % 70.2 % (40.0-76.0); PLATELET 218 x1000/uL (130-400); RED BLOOD CELL COUNT 3.65 mill/uL (4.7-6.1); RED CELL DISTRIBUTION WIDTH 21.1 % (11.6-14.6)
[2019-11-27 09:22] LABS: CHLORIDE 103 mEq/L (98-107)
[2019-11-27 09:32] LABS: CREATINE KINASE 781 IU/L (39-308)
[2019-11-27 09:54] LABS: CREATINE KINASE MB FRACTION 7.6 ng/mL (0.5-3.6)
[2019-11-27 10:21] LABS: PHOSPHORUS 10.2 mg/dL (2.5-4.9)
[2019-11-27] MEDS: PIPERACILLIN/TAZOBACTAM 2.25 G in DEXTROSE 5% WATER 50 ML IV SCH ×2 (10:42→21:31)
[2019-11-27] MEDS: DILTIAZEM HCL 180MG CAPSULE CD 24HR PO SCH (10:44)
[2019-11-27 11:00] LABS: CLARITY URINE CLEAR (CLEAR); COLOR URINE YELLOW (YELLOW); KETONES URINE NEGATIVE (NEGATIVE); LEUKOCYTE ESTERASE URINE NEGATIVE (NEGATIVE); NITRITE URINE NEGATIVE (NEGATIVE); OCCULT BLOOD URINE 1+ (NEGATIVE); PH URINE 6.5 (4.5-8.0); PROTEIN URINE 4+ (NEGATIVE); SPECIFIC GRAVITY URINE 1.017 (1.005-1.030); UROBILINOGEN URINE 0.2 E.U./dL (0.2-1.0)
[2019-11-27 11:22] LABS: *AMPHETAMINES SCREEN URINE PRESUMTIVE POSITIVE (NEGATIVE); *BARBITURATES SCREEN URINE NEGATIVE (NEGATIVE); *BENZODIAZEPINES SCREEN URINE NEGATIVE (NEGATIVE); *COCAINE SCREEN URINE NEGATIVE (NEGATIVE); CANNABINOID URINE SCREEN NEGATIVE (NEGATIVE); METHADONE URINE SCREEN NEGATIVE (NEGATIVE); OPIATES URINE SCREEN NEGATIVE (NEGATIVE); PHENCYCLIDINE URINE SCREEN PRESUMTIVE POSITIVE (NEGATIVE)
[2019-11-27] MEDS ORDERED: LIDOCAINE HCL/PF 1% 2ML VIAL ONE (11:31)
[2019-11-27] MEDS: CLONIDINE 0.1MG TABLET PO PRN ×2 (12:25→18:15)
[2019-11-27] MEDS: TRAMADOL 50MG TABLET PO PRN ×2 (14:56→22:13)
[2019-11-27] MEDS ORDERED: VANCOMYCIN 750 MG PREMIX 150 ML IV SCH (17:00)
[2019-11-27] MEDS ORDERED: CEFTRIAXONE 1 G PREMIX 50 ML IV SCH (19:00)
[2019-11-27] MEDS ORDERED: AZITHROMYCIN 500 MG in DEXT 5% WATER 250 ML IV SCH (20:00)
[2019-11-27] MEDS: ZOLPIDEM TARTRATE 5MG TABLET PO PRN (22:14)
[2019-11-28] VITALS (42 sets, daily range): BP systolic 70–169; BP diastolic 43–115
[2019-11-28] MEDS: SEVELAMER CARBONATE 800 MG TABLET PO SCH ×4 (05:14→18:27)
[2019-11-28] MEDS: TRAMADOL 50MG TABLET PO PRN ×2 (05:15→17:23)
[2019-11-28 05:55] LABS: BASOPHILS % 0.7 % (0.0-2.0); EOSINOPHILS % 3.8 % (0.0-5.0); HEMATOCRIT. 29.5 % (42.0-52.0); HEMOGLOBIN. 9.5 g/dL (14.0-18.0); LYMPHOCYTES % 9.4 % (20.0-50.0); MEAN CORPUSCULAR HEMOGLOBIN 26.6 pg (28.0-32.0); MEAN CORPUSCULAR VOLUME 82.7 fL (80.0-94.0); MEAN PLATELET VOLUME 8.9 fl (7.4-10.4); MONOCYTES % 12.1 % (2.0-8.0); PLATELET 189 x1000/uL (130-400); RED BLOOD CELL COUNT 3.57 mill/uL (4.7-6.1); RED CELL DISTRIBUTION WIDTH 21.1 % (11.6-14.6)
[2019-11-28 06:14] LABS: PHOSPHORUS 8.4 mg/dL (2.5-4.9)
[2019-11-28] MEDS ORDERED: DEXTROSE 50% WATER 50ML SYRINGE IV STA (06:21)
[2019-11-28] MEDS ORDERED: SODIUM BICARBONATE 8.4% 1 MEQ/ML 50ML SYR IV STA (06:21)
[2019-11-28] MEDS ORDERED: INSULIN REGULAR (HUMULIN R) 300UNITS/3ML IV STA (06:21)
[2019-11-28] MEDS: CALCIUM ACETATE 667MG CAPSULE PO SCH ×4 (06:55→18:27)
[2019-11-28] MEDS ORDERED: LIDOCAINE HCL 4% CREAM 76GM TUBE TP ONE (10:45)
[2019-11-28] MEDS ORDERED: LIDOCAINE HCL 1% 20ML VIAL (Pyxis) INJ MC ONE (11:00)
[2019-11-28] MEDS: DILTIAZEM HCL 180MG CAPSULE CD 24HR PO SCH (15:39)
[2019-11-28] MEDS: CLONIDINE 0.1MG TABLET PO PRN (15:40)
[2019-11-28] MEDS: CARVEDILOL 12.5MG TABLET PO SCH ×2 (15:40→21:46)
[2019-11-28] MEDS: ASPIRIN 325MG EC TABLET PO SCH (15:41)
[2019-11-28] MEDS: FAMOTIDINE 20MG TABLET PO SCH (15:41)
[2019-11-28] MEDS: ASCORBIC ACID 500 MG TABLET PO SCH ×2 (15:42→21:46)
[2019-11-28] MEDS: PIPERACILLIN/TAZOBACTAM 2.25 G in DEXTROSE 5% WATER 50 ML IV SCH ×2 (15:42→21:47)
[2019-11-28] MEDS: ZINC SULFATE 220 MG ( 50 ) CAPSULE PO SCH (15:42)
[2019-11-28 17:56] LABS: BASOPHILS % 0.8 % (0.0-2.0); EOSINOPHILS % 2.6 % (0.0-5.0); HEMATOCRIT. 29.6 % (42.0-52.0); HEMOGLOBIN. 9.6 g/dL (14.0-18.0); LYMPHOCYTES % 7.7 % (20.0-50.0); MEAN CORPUSCULAR HEMOGLOBIN 26.4 pg (28.0-32.0); MEAN CORPUSCULAR VOLUME 81.9 fL (80.0-94.0); MEAN PLATELET VOLUME 8.6 fl (7.4-10.4); MONOCYTES % 11.4 % (2.0-8.0); NEUTROPHILS % 77.5 % (40.0-76.0); PLATELET 185 x1000/uL (130-400); RED BLOOD CELL COUNT 3.62 mill/uL (4.7-6.1)
[2019-11-29] VITALS: BP 131/84
[2019-11-29] MEDS: ZOLPIDEM TARTRATE 5MG TABLET PO PRN (00:33)
[2019-11-29 04:28] VITALS: BP 122/80
[2019-11-29] MEDS: TRAMADOL 50MG TABLET PO PRN ×2 (04:54→21:40)
[2019-11-29 07:45] VITALS: BP 137/85
[2019-11-29] MEDS: FAMOTIDINE 20MG TABLET PO SCH (08:35)
[2019-11-29] MEDS: ASCORBIC ACID 500 MG TABLET PO SCH ×2 (08:35→21:11)
[2019-11-29] MEDS: DILTIAZEM HCL 180MG CAPSULE CD 24HR PO SCH (08:35)
[2019-11-29] MEDS: ASPIRIN 325MG EC TABLET PO SCH (08:35)
[2019-11-29] MEDS: SEVELAMER CARBONATE 800 MG TABLET PO SCH ×3 (08:35→17:20)
[2019-11-29] MEDS: CARVEDILOL 12.5MG TABLET PO SCH ×2 (08:35→21:11)
[2019-11-29] MEDS: CALCIUM ACETATE 667MG CAPSULE PO SCH ×3 (08:35→17:20)
[2019-11-29] MEDS: ZINC SULFATE 220 MG ( 50 ) CAPSULE PO SCH (08:35)
[2019-11-29] MEDS: PIPERACILLIN/TAZOBACTAM 2.25 G in DEXTROSE 5% WATER 50 ML IV SCH ×2 (09:35→21:10)
[2019-11-29] MEDS ORDERED: VANCOMYCIN 500 MG PREMIX 100 ML IV SCH (11:00)
[2019-11-29 11:51] VITALS: BP 174/98
[2019-11-29] MEDS: CLONIDINE 0.1MG TABLET PO PRN (11:56)
[2019-11-29 15:52] LABS: BG BASE EXCESS -1.1 mmol/L (-2.0-2.0); BG CARBOXYHEMOGLOBIN 0.3 % (0.5-1.5); BG DEOXYHEMOGLOBIN 12.6 % (0.0-5.0); BG FRACTION INSPIRED OXYGEN 21; BG HCO3 ACT 23.8 mmol/L (22.0-26.0); BG METHEMOGLOBIN 0.3 % (0.0-1.5); BG OXYGEN SATURATION 87.3 % (92.0-98.5); BG OXYHEMOGLOBIN 86.8 % (94.0-97.0); BG PCO2 40.2 mmHg (35.0-45.0); BG SAMPLE SITE RIGHT RADIAL; BG TOTAL HEMOGLOBIN 9.9 g/dL (12.0-18.0); BG VENT MODE ROOM AIR
[2019-11-29 16:00] VITALS: BP 118/60
[2019-11-29 20:00] VITALS: BP 113/79
[2019-11-30] VITALS: BP 128/92
[2019-11-30 04:00] VITALS: BP 144/95
[2019-11-30] MEDS: CLONIDINE 0.1MG TABLET PO PRN (04:22)
[2019-11-30 06:57] LABS: BASOPHILS % 0.8 % (0.0-2.0); EOSINOPHILS % 4.4 % (0.0-5.0); HEMATOCRIT. 27.3 % (42.0-52.0); LYMPHOCYTES % 15.8 % (20.0-50.0); MEAN CORPUSCULAR HEMOGLOBIN 27.2 pg (28.0-32.0); MEAN CORPUSCULAR VOLUME 82.4 fL (80.0-94.0); MEAN PLATELET VOLUME 8.8 fl (7.4-10.4); MONOCYTES % 11.4 % (2.0-8.0); NEUTROPHILS % 67.6 % (40.0-76.0); PLATELET 196 x1000/uL (130-400); RED BLOOD CELL COUNT 3.31 mill/uL (4.7-6.1); RED CELL DISTRIBUTION WIDTH 21.1 % (11.6-14.6)
[2019-11-30 07:53] VITALS: BP 153/93
[2019-11-30] MEDS: ASPIRIN 325MG EC TABLET PO SCH (09:02)
[2019-11-30] MEDS: FAMOTIDINE 20MG TABLET PO SCH (09:02)
[2019-11-30] MEDS: ZINC SULFATE 220 MG ( 50 ) CAPSULE PO SCH (09:02)
[2019-11-30] MEDS: SEVELAMER CARBONATE 800 MG TABLET PO SCH ×3 (09:02→18:15)
[2019-11-30] MEDS: DILTIAZEM HCL 180MG CAPSULE CD 24HR PO SCH (09:02)
[2019-11-30] MEDS: ASCORBIC ACID 500 MG TABLET PO SCH (09:02)
[2019-11-30] MEDS: CALCIUM ACETATE 667MG CAPSULE PO SCH ×3 (09:03→18:15)
[2019-11-30] MEDS: CARVEDILOL 12.5MG TABLET PO SCH (09:03)
[2019-11-30] MEDS: PIPERACILLIN/TAZOBACTAM 2.25 G in DEXTROSE 5% WATER 50 ML IV SCH (10:52)
[2019-11-30 11:41] VITALS: BP 126/76
[2019-11-30 18:06] VITALS: BP 153/65
[2019-11-30 20:00] VITALS: BP 149/90
[2019-11-30] MEDS ORDERED: VANCOMYCIN 500 MG PREMIX 100 ML IV SCH (21:00)
== END 2019-11-30 22:02 | disposition home health service (06) | DRG 871 ==
LOC: ER 17:15 → MICUSO 18:19 → EDBEDREQ 18:31 → ENRESERV 19:30 → 8WST 11-28 16:45
PROVIDERS: ADMIT Internal Medicine; ATTEND Internal Medicine
PROC: 5A1D70Z Performance of Urinary Filtration, Intermittent, Less than 6 Hours Per Day (ICD-10-PCS; principal; 2019-11-27)
PROC: 30233N1 Transfusion of Nonautologous Red Blood Cells into Peripheral Vein, Percutaneous Approach (ICD-10-PCS; 2019-11-27)
PROC: 5A1D70Z Performance of Urinary Filtration, Intermittent, Less than 6 Hours Per Day (ICD-10-PCS; 2019-11-28)
PROC: 5A1D70Z Performance of Urinary Filtration, Intermittent, Less than 6 Hours Per Day (ICD-10-PCS; 2019-11-30)
DX: A41.9 Sepsis, unspecified organism (principal); I50.33 Acute on chronic diastolic (congestive) heart failure; J96.01 Acute respiratory failure with hypoxia; E43 Unspecified severe protein-calorie malnutrition; J18.9 Pneumonia, unspecified organism; N18.6 End stage renal disease; I13.2 Hypertensive heart and chronic kidney disease with heart failure and with stage 5 chronic kidney disease, or end stage renal disease; E87.0 Hyperosmolality and hypernatremia; M62.82 Rhabdomyolysis; I47.1 Supraventricular tachycardia; E87.2 Acidosis; G93.40 Encephalopathy, unspecified; I42.9 Cardiomyopathy, unspecified; R65.20 Severe sepsis without septic shock; I48.0 Paroxysmal atrial fibrillation; Z20.828 Contact with and (suspected) exposure to other viral communicable diseases; K21.9 Gastro-esophageal reflux disease without esophagitis; F16.10 Hallucinogen abuse, uncomplicated; E87.6 Hypokalemia; G62.9 Polyneuropathy, unspecified; F15.10 Other stimulant abuse, uncomplicated; D64.9 Anemia, unspecified; E83.42 Hypomagnesemia; E83.51 Hypocalcemia; E87.5 Hyperkalemia; Z99.2 Dependence on renal dialysis; Z79.899 Other long term (current) drug therapy; Z91.19 Patient's noncompliance with other medical treatment and regimen; Z68.22 Body mass index [BMI] 22.0-22.9, adult
CPT/HCPCS: 36415; 36600; 71045; 80048; 80053; 80202; 80305; 80320; 81003; 82330; 82375; 82550; 82553; 82607; 82728; 82746; 82805; 83540; 83550; 83605; 83615; 83735; 84100; 84132; 84145; 84439; 84443; 84484; 85025; 85379; 85384; 86140; 86850; 86900; 86920; 87804; 93005; 93306; 93970; 94003; 94640; 96365; 97161; 97166; 99291; J0456; J0696; J1815; J2405; J2543; J3370; J3475; J3490; J7060; P9016; G0480; U0003-CS

== ENCOUNTER 2019-12-08 18:07 | Inpatient (IN) | payer MEDICARE, OTHER ==
[~2019-12-08] VITALS: Ht 182.9 cm; Wt 81.4 kg
[2019-12-08] MEDS ORDERED: ONDANSETRON HCL 4MG/2ML INJ IV STA (18:17)
[2019-12-08] MEDS ORDERED: NITROGLYCERIN OINT 1GM/INCH UDPKT TD ONE (18:30)
[2019-12-08] MEDS ORDERED: AMIODARONE HCL 900 MG in DEXT 5% WATER 500 ML IV ONE (18:30)
[2019-12-08] MEDS ORDERED: AMIODARONE HCL 150 MG in DEXT 5% WATER 100 ML IV ONE (18:30)
[2019-12-08] MEDS ORDERED: MAGNESIUM 2 G PREMIX 50 ML IV ONE (18:30)
[2019-12-08 19:07] LABS: CHLORIDE 102 mEq/L (98-107); HEMATOCRIT. 28.4 % (42.0-52.0); HEMOGLOBIN. 9.1 g/dL (14.0-18.0); MEAN CORPUSCULAR HEMOGLOBIN 26.3 pg (28.0-32.0); MEAN CORPUSCULAR VOLUME 82.4 fL (80.0-94.0); MEAN PLATELET VOLUME 8.6 fl (7.4-10.4); PLATELET 229 x1000/uL (130-400); RED BLOOD CELL COUNT 3.45 mill/uL (4.7-6.1); RED CELL DISTRIBUTION WIDTH 21.4 % (11.6-14.6)
[2019-12-08 19:10] LABS: INR 1.2
[2019-12-08] MEDS ORDERED: VANCOMYCIN 1 G PREMIX 200 ML IV NR (19:45)
[2019-12-08] MEDS ORDERED: PIPERACILLIN/TAZ 3.375G PREMIX 50 ML IV NR (19:45)
[2019-12-08 19:58] LABS: PLATELET ESTIMATE NORMAL
[2019-12-08] MEDS ORDERED: LABETALOL HCL 20MG/4ML CARPUJECT IV ONE (20:45)
[2019-12-08] MEDS ORDERED: LABETALOL 5MG/ML SYR 20 MG/4 ML SYRINGE IV NR (21:00)
[2019-12-09] MEDS ORDERED: DIPHENHYDRAMINE 50MG/ML VIAL IV PRN
[2019-12-09] MEDS ORDERED: ACETAMINOPHEN 325MG TABLET PO PRN
[2019-12-09] MEDS ORDERED: ONDANSETRON HCL 4MG/2ML INJ IV PRN
[2019-12-09] MEDS ORDERED: DILTIAZEM HCL 125 MG in DEXT 5% WATER 100 ML IV PRN (01:00)
[2019-12-09] MEDS: HYDRALAZINE 20MG/ML VIAL IV PRN ×4 (01:12→16:45)
[2019-12-09] MEDS: SODIUM CHLORIDE 0.9% INJ 3ML FLUSH IVF SCH ×3 (07:23→22:21)
[2019-12-09] MEDS ORDERED: FAMOTIDINE 20MG/2ML VIAL IV SCH (09:00)
[2019-12-09] MEDS: FAMOTIDINE 20MG/2ML VIAL IV SCH (10:00)
[2019-12-09] MEDS: ACETAMINOPHEN 325MG TABLET PO PRN ×2 (10:01→12:39)
[2019-12-09 12:00] VITALS: BP 210/110
[2019-12-09 12:45] VITALS: BP 151/90
[2019-12-09 13:35] VITALS: BP 210/110
[2019-12-09] MEDS: ENOXAPARIN 80MG/0.8ML SYR SUBCUT SCH (15:02)
[2019-12-09 16:29] VITALS: BP 179/100
[2019-12-09 17:15] VITALS: BP 159/90
[2019-12-09] MEDS: DILTIAZEM HCL 90MG TABLET PO SCH (17:35)
[2019-12-09 20:00] VITALS: BP 179/94
[2019-12-09] MEDS: CARVEDILOL 12.5MG TABLET PO SCH (22:21)
[2019-12-10] VITALS (42 sets, daily range): BP systolic 122–245; BP diastolic 71–176
[2019-12-10] MEDS: DILTIAZEM HCL 90MG TABLET PO SCH ×4 (02:03→18:50)
[2019-12-10] MEDS: SODIUM CHLORIDE 0.9% INJ 3ML FLUSH IVF SCH ×3 (06:22→22:26)
[2019-12-10 07:26] LABS: EOSINOPHILS % 2.6 % (0.0-5.0); HEMATOCRIT. 28.6 % (42.0-52.0); HEMOGLOBIN. 9.3 g/dL (14.0-18.0); LYMPHOCYTES % 7.6 % (20.0-50.0); MEAN CORPUSCULAR HEMOGLOBIN 26.7 pg (28.0-32.0); MEAN CORPUSCULAR VOLUME 82.5 fL (80.0-94.0); MEAN PLATELET VOLUME 8.8 fl (7.4-10.4); NEUTROPHILS % 79.8 % (40.0-76.0); PLATELET 220 x1000/uL (130-400); RED BLOOD CELL COUNT 3.47 mill/uL (4.7-6.1); RED CELL DISTRIBUTION WIDTH 20.9 % (11.6-14.6)
[2019-12-10] MEDS ORDERED: DEXTROSE 50% WATER 50ML SYRINGE IV ONE (08:29)
[2019-12-10] MEDS ORDERED: SODIUM BICARBONATE 8.4% 1 MEQ/ML 50ML SYR IV ONE (08:29)
[2019-12-10] MEDS ORDERED: INSULIN REGULAR (HUMULIN R) UD 100 UNITS/ML SYR IV NR (08:30)
[2019-12-10] MEDS ORDERED: CALCIUM GLUCONATE 100MG/ML 10ML VIAL IV NR (08:30)
[2019-12-10] MEDS: CARVEDILOL 12.5MG TABLET PO SCH ×2 (09:00→13:26)
[2019-12-10] MEDS ORDERED: SODIUM POLYSTYRENE SULFONATE 15 G/60 ML BOT PR SCH (09:00)
[2019-12-10] MEDS: FAMOTIDINE 20MG/2ML VIAL IV SCH (09:22)
[2019-12-10 09:53] LABS: BG BASE EXCESS -4.7 mmol/L (-2.0-2.0); BG CARBOXYHEMOGLOBIN 0.3 % (0.5-1.5); BG DEOXYHEMOGLOBIN 0.6 % (0.0-5.0); BG FRACTION INSPIRED OXYGEN 100; BG HCO3 ACT 20.5 mmol/L (22.0-26.0); BG METHEMOGLOBIN 0.4 % (0.0-1.5); BG OXYGEN SATURATION 99.4 % (92.0-98.5); BG OXYHEMOGLOBIN 98.7 % (94.0-97.0); BG PH 7.349 (7.350-7.450); BG PO2 326.9 mmHg (75.0-100.0); BG SAMPLE SITE RIGHT BRACHIAL; BG VENT MODE MASK - NRB
[2019-12-10] MEDS: HYDRALAZINE 20MG/ML VIAL IV PRN (14:48)
[2019-12-10] MEDS: ENOXAPARIN 80MG/0.8ML SYR SUBCUT SCH (16:52)
[2019-12-10] MEDS ORDERED: HYDRALAZINE HCL 50MG TABLET PO SCH (17:00)
[2019-12-10] MEDS: HYDRALAZINE HCL 100MG TABLET PO SCH (22:26)
[2019-12-11] VITALS (11 sets, daily range): BP systolic 129–200; BP diastolic 79–118
[2019-12-11] MEDS: DILTIAZEM HCL 90MG TABLET PO SCH ×5 (00:11→23:07)
[2019-12-11 05:11] LABS: HEMATOCRIT. 26.7 % (42.0-52.0); HEMOGLOBIN. 8.8 g/dL (14.0-18.0); MEAN CORPUSCULAR HEMOGLOBIN 26.7 pg (28.0-32.0); MEAN CORPUSCULAR VOLUME 81.1 fL (80.0-94.0); MEAN PLATELET VOLUME 8.8 fl (7.4-10.4); PLATELET 216 x1000/uL (130-400); RED CELL DISTRIBUTION WIDTH 20.5 % (11.6-14.6)
[2019-12-11] MEDS: HYDRALAZINE 20MG/ML VIAL IV PRN (05:36)
[2019-12-11] MEDS: HYDRALAZINE HCL 100MG TABLET PO SCH ×3 (06:00→21:31)
[2019-12-11] MEDS: SODIUM CHLORIDE 0.9% INJ 3ML FLUSH IVF SCH ×3 (06:12→21:31)
[2019-12-11 08:13] LABS: PLATELET ESTIMATE NORMAL
[2019-12-11] MEDS: CARVEDILOL 12.5MG TABLET PO SCH ×2 (08:47→20:02)
[2019-12-11] MEDS: FAMOTIDINE 20MG/2ML VIAL IV SCH (08:48)
[2019-12-11] MEDS: HYDROCODONE/ACETAMINOPHEN 10/325MG TABLET PO PRN (13:07)
[2019-12-11] MEDS: ENOXAPARIN 80MG/0.8ML SYR SUBCUT SCH (14:00)
[2019-12-11] MEDS: GABAPENTIN 100MG CAPSULE PO SCH (17:11)
[2019-12-12] VITALS: BP 138/86
[2019-12-12] MEDS: HYDRALAZINE 20MG/ML VIAL IV PRN (03:53)
[2019-12-12 04:00] VITALS: BP 161/97
[2019-12-12] MEDS: DILTIAZEM HCL 90MG TABLET PO SCH ×2 (06:35→12:00)
[2019-12-12] MEDS: HYDRALAZINE HCL 100MG TABLET PO SCH ×2 (06:36→15:55)
[2019-12-12] MEDS: SODIUM CHLORIDE 0.9% INJ 3ML FLUSH IVF SCH ×2 (06:36→13:55)
[2019-12-12 07:42] LABS: BASOPHILS % 1.1 % (0.0-2.0); EOSINOPHILS % 3.9 % (0.0-5.0); HEMATOCRIT. 27.6 % (42.0-52.0); LYMPHOCYTES % 11.5 % (20.0-50.0); MEAN CORPUSCULAR HEMOGLOBIN 26.8 pg (28.0-32.0); MEAN PLATELET VOLUME 8.6 fl (7.4-10.4); MONOCYTES % 12.6 % (2.0-8.0); NEUTROPHILS % 70.9 % (40.0-76.0); PLATELET 244 x1000/uL (130-400); RED BLOOD CELL COUNT 3.37 mill/uL (4.7-6.1)
[2019-12-12 08:00] VITALS: BP 156/74
[2019-12-12] MEDS: GABAPENTIN 100MG CAPSULE PO SCH ×3 (09:42→17:00)
[2019-12-12] MEDS: FAMOTIDINE 20MG/2ML VIAL IV SCH (09:43)
[2019-12-12] MEDS: CARVEDILOL 12.5MG TABLET PO SCH (09:43)
[2019-12-12 12:00] VITALS: BP 144/87
[2019-12-12] MEDS: HYDROCODONE/ACETAMINOPHEN 10/325MG TABLET PO PRN (12:56)
[2019-12-12] MEDS ORDERED: IPRATROPIUM/ALBUTEROL 0.5-3(2.5)MG/3ML NEB HHN PRN (13:30)
[2019-12-12] MEDS ORDERED: IPRATROPIUM/ALBUTEROL 0.5-3(2.5)MG/3ML NEB HHN SCH (14:00)
[2019-12-12 14:09] LABS: BG BASE EXCESS -0.5 mmol/L (-2.0-2.0); BG CARBOXYHEMOGLOBIN 0.1 % (0.5-1.5); BG DEOXYHEMOGLOBIN 10.3 % (0.0-5.0); BG FRACTION INSPIRED OXYGEN 21; BG HCO3 ACT 23.6 mmol/L (22.0-26.0); BG METHEMOGLOBIN 0.1 % (0.0-1.5); BG OXYGEN SATURATION 89.7 % (92.0-98.5); BG OXYHEMOGLOBIN 89.5 % (94.0-97.0); BG PCO2 36.3 mmHg (35.0-45.0); BG PH 7.431 (7.350-7.450); BG PO2 61.2 mmHg (75.0-100.0); BG SAMPLE SITE RIGHT RADIAL; BG TOTAL HEMOGLOBIN 8.8 g/dL (12.0-18.0); BG VENT MODE ROOM AIR
[2019-12-12] MEDS: ENOXAPARIN 80MG/0.8ML SYR SUBCUT SCH (15:55)
[2019-12-12 16:00] VITALS: BP 172/100
[2019-12-12 20:00] VITALS: BP 158/89
== END 2019-12-12 20:50 | disposition home health service (06) | DRG 291 ==
LOC: ER 18:07 → EDBEDREQTM 20:57 → EDBEDREQ 20:57 → MICUSO 20:58 → EDBEDREQ 21:08 → 7WST 12-09 10:43 → 5WST 12-09 22:33 → CVICU 12-10 10:07 → 5WST 12-11 08:11
PROVIDERS: ADMIT Internal Medicine; ATTEND Internal Medicine
PROC: 5A09357 Assistance with Respiratory Ventilation, Less than 24 Consecutive Hours, Continuous Positive Airway Pressure (ICD-10-PCS; 2019-12-08)
PROC: 5A1D70Z Performance of Urinary Filtration, Intermittent, Less than 6 Hours Per Day (ICD-10-PCS; principal; 2019-12-10)
PROC: 5A1D70Z Performance of Urinary Filtration, Intermittent, Less than 6 Hours Per Day (ICD-10-PCS; 2019-12-12)
DX: I13.2 Hypertensive heart and chronic kidney disease with heart failure and with stage 5 chronic kidney disease, or end stage renal disease (principal); N18.6 End stage renal disease; J96.01 Acute respiratory failure with hypoxia; I50.33 Acute on chronic diastolic (congestive) heart failure; I47.1 Supraventricular tachycardia; I45.89 Other specified conduction disorders; E87.5 Hyperkalemia; F15.10 Other stimulant abuse, uncomplicated; F16.10 Hallucinogen abuse, uncomplicated; I48.0 Paroxysmal atrial fibrillation; D63.8 Anemia in other chronic diseases classified elsewhere; G62.9 Polyneuropathy, unspecified; R00.1 Bradycardia, unspecified; I42.9 Cardiomyopathy, unspecified; Z20.828 Contact with and (suspected) exposure to other viral communicable diseases; Z59.0 Homelessness; Z79.01 Long term (current) use of anticoagulants; Z86.718 Personal history of other venous thrombosis and embolism; Z91.19 Patient's noncompliance with other medical treatment and regimen; Z71.51 Drug abuse counseling and surveillance of drug abuser; Z99.2 Dependence on renal dialysis; Z79.899 Other long term (current) drug therapy
CPT/HCPCS: 36415; 36600; 71045; 80048; 80053; 82375; 82805; 82962; 83605; 83880; 84132; 84484; 85025; 87635; 93005; 93970; 94640; 94660; 99291; J0282; J0360; J0610; J1650; J1815; J2405; J2543; J3370; J3475; J3490; J7060; U0003-CS